=== PATIENT | male | born 1955 | race Caucasian/White ===

== ENCOUNTER 2020-03-05 12:23 | Outpatient (CLI) | payer MEDICARE | END 2020-03-05 12:24 | disposition home or self-care (01) | LOC: ULT 12:23 | PROVIDERS: ATTEND Internal Medicine Critical Care Medicine | DX: G47.33 Obstructive sleep apnea (adult) (pediatric) (principal); I08.1 Rheumatic disorders of both mitral and tricuspid valves | CPT/HCPCS: 93306 ==

== ENCOUNTER 2020-03-08 07:04 | Outpatient (CLI) | payer MEDICARE ==
[2020-03-08 17:22] LABS: Hemoglobin 14.7 g/dL (14.0-18.0); Mean Corpuscular HGB CONC 32.5 G/DL (32.0-36.0); Mean Corpuscular Hemoglobin 29.2 PG (27.0-33.0); Mean Corpuscular Volume 89.7 fl (80.0-100.0); Mean Platelet Volume 9.5 fl (7.4-10.4); Platelet Count 370 10x3/uL (130-400); RBC Distribution Width 15.1 % (11.5-14.5); Red Blood Cell (RBC) Count 5.04 10x6/uL (4.40-5.80); White Blood Cell (WBC) Count 11.5 10x3/uL (4.5-11.0)
[2020-03-08 17:23] LABS: PTT 28.4 sec (22.0-33.0); Prothrombin Time 10.3 sec (9.5-12.1)
[2020-03-08 17:30] LABS: Anion Gap 20 mmol/L (10-20); BUN (Urea Nitrogen) 15 mg/dL (8.4-25.7); Calc. Creatinine Clearance 0 mL/min (70-130); Calcium 8.2 mg/dL (7.8-10.44); Carbon Dioxide 25 mmol/L (23-31); Chloride 96 mmol/L (98-107); Glucose 81 mg/dL (80-115); Potassium 5.5 mmol/L (3.5-5.1); Sodium 135 mmol/L (136-145)
[2020-03-09 09:25] LABS: SARS-CoV-2 MS2 Positive; SARS-CoV-2 N Gene Negative; SARS-CoV-2 S Gene Negative; SARS-CoV-2 by NAA Not Detected (NotDetected); SARS-CoV-2 orf1ab Negative
--- NOTE | 2020-03-12 07:02 | EKG ---
Test Reason : PREOP Blood Pressure : / mmHG Vent. Rate : 075 BPM Atrial Rate : 075 BPM P-R Int : 200 ms QRS Dur : 126 ms QT Int : 406 ms P-R-T Axes : 079 257 080 degrees QTc Int : 453 ms Normal sinus rhythm Right superior axis deviation Non-specific intra-ventricular conduction block Cannot rule out Septal infarct , age undetermined Abnormal ECG No previous ECGs available Confirmed by SHRUTHI DOBSON, CINDY ([id number]) on 03/12/2020 7:01:29 AM Referred By: SUSIE Confirmed By:CINDY HAWKINS MD
== END 2020-03-08 07:05 | disposition home or self-care (01) ==
LOC: LABBT 07:04
PROVIDERS: ATTEND Urology
DX: Z01.818 Encounter for other preprocedural examination (principal); Z20.828 Contact with and (suspected) exposure to other viral communicable diseases; N40.0 Benign prostatic hyperplasia without lower urinary tract symptoms
CPT/HCPCS: 80048; 85027; 85610; 85730; U0003; 87635; 93005; 93010

== ENCOUNTER 2020-03-12 11:17 | Day surgery (SDC) | payer MEDICARE ==
[2020-02-26 09:24] VITALS: BMI 27.8
[2020-03-12] MEDS ORDERED: Levofloxacin 500 mg/D5W 100 ml Premix Bag ONE (12:25)
[2020-03-12] MEDS ORDERED: Dexamethasone 20 MG/5 ML VIAL ONE (12:46)
[2020-03-12] MEDS ORDERED: Lidocaine 1% PF 5 ML VIAL ONE (12:46)
[2020-03-12] MEDS ORDERED: PROPOFOL 200 MG/20 ML VIAL ONE (12:46)
[2020-03-12] MEDS ORDERED: Ondansetron PF 4 MG/2 ML Vial ONE (12:46)
[2020-03-12] MEDS ORDERED: Fentanyl 100 MCG/2 ML VIAL ONE (12:53)
[2020-03-12] MEDS ORDERED: Oxybutynin 5 MG TAB ONE (13:52)
[2020-03-12] MEDS ORDERED: Phenazopyridine HCl 100 MG TAB ONE (13:52)
[2020-03-12] MEDS ORDERED: Ketorolac Tromethamine 30 MG/ML VIAL ONE (13:52)
--- NOTE | 2020-03-12 14:29 | OP ---
DATE OF PROCEDURE: 03/12/2020 PREOPERATIVE DIAGNOSIS: Lower urinary tract symptoms due to enlarged prostate. POSTOPERATIVE DIAGNOSIS: Lower urinary tract symptoms due to enlarged prostate. PROCEDURE PERFORMED: UroLift x6 implants. ANESTHESIA: General. COMPLICATIONS: None. ESTIMATED BLOOD LOSS: Minimal. SPECIMEN: None. DESCRIPTION OF PROCEDURE: After informed consent, the patient was taken to the operating room, transferred to the table under his own power. Anesthesia was established. A time-out was performed, showing the correct patient, site, and procedure. Preoperative antibiotics were administered. He was prepped and draped in the lithotomy position. The 20-English cystoscope was advanced through the urethra noting a normal course and caliber of the urethra into the prostate noting a short segment prostate with obstructing bladder neck. The bladder was then entered noting moderate trabeculation with no mucosal abnormalities. I began by placing an implant anteriorly about mid prostate given the short length of the prostate on the left side. I then placed a similar implant on the right side. However, severed two bone strikes despite multiple techniques to attempt to avoid a bone strike. I then repositioned slightly less anterior and was able to place the implant. I then placed two more implants in the distal prostate more posterior than the previous ones. At the end of the case, he had excellent channel with no visual obstruction. His bladder was drained and then refilled with about 200 mL to enable a void trial in recovery. He was then awoken from anesthesia, transferred back to his hospital bed and taken to PACU in stable condition, where he was discharged home upon recovery. Job ID: [id number]
== END 2020-03-12 15:27 | disposition home or self-care (01) ==
LOC: SDC 11:17
PROVIDERS: ATTEND Urology
PROC: 0T7D8DZ Dilation of Urethra with Intraluminal Device, Via Natural or Artificial Opening Endoscopic (ICD-10-PCS; principal; 2020-03-12)
DX: N40.1 Benign prostatic hyperplasia with lower urinary tract symptoms (principal); R33.8 Other retention of urine; R39.14 Feeling of incomplete bladder emptying; F17.210 Nicotine dependence, cigarettes, uncomplicated; F41.9 Anxiety disorder, unspecified; J44.9 Chronic obstructive pulmonary disease, unspecified; M19.90 Unspecified osteoarthritis, unspecified site; Z79.899 Other long term (current) drug therapy; Z88.2 Allergy status to sulfonamides; Z88.8 Allergy status to other drugs, medicaments and biological substances
CPT/HCPCS: C1889; C9740; J1100; J1885; J1956; J2405; J2704; J3010; J7620

== ENCOUNTER 2020-04-21 19:00 | Outpatient (CLI) | payer MEDICARE | END 2020-04-21 19:01 | disposition home or self-care (01) | LOC: SLEEPLAB 19:00 | PROVIDERS: ATTEND Internal Medicine Critical Care Medicine | DX: F51.9 Sleep disorder not due to a substance or known physiological condition, unspecified (principal); G47.33 Obstructive sleep apnea (adult) (pediatric); R53.83 Other fatigue; R09.89 Other specified symptoms and signs involving the circulatory and respiratory systems; R06.83 Snoring; G47.10 Hypersomnia, unspecified; G47.31 Primary central sleep apnea; R09.02 Hypoxemia; E66.9 Obesity, unspecified; Z68.29 Body mass index [BMI] 29.0-29.9, adult | CPT/HCPCS: 95811 ==

== ENCOUNTER 2020-07-01 10:16 | Outpatient (CLI) | payer MEDICARE | END 2020-07-01 10:17 | disposition home or self-care (01) | LOC: BICRAD 10:16 | PROVIDERS: ATTEND Internal Medicine Critical Care Medicine | DX: R06.00 Dyspnea, unspecified (principal) | CPT/HCPCS: 71046 ==

== ENCOUNTER 2020-07-19 01:13 | Inpatient (IN) | payer MEDICARE ==
[2020-07-19] MEDS ORDERED: Furosemide 40 MG TAB ONE (01:43)
[2020-07-19] MEDS ORDERED: methylPREDNISolone Sod Succ/PF 125 MG/2 ML VIAL ONE (01:43)
[2020-07-19] MEDS ORDERED: Acetaminophen 500 MG TAB ONE (01:43)
[2020-07-19] MEDS ORDERED: Vancomycin 1 GM/200 ML BAG ONE (01:43)
[2020-07-19] MEDS ORDERED: Cefepime 2 GM VIAL ONE (01:43)
[2020-07-19] MEDS ORDERED: Furosemide 40 MG/4 ML VIAL ONE (01:44)
[2020-07-19] MEDS ORDERED: Albuterol Sulfate 2.5 mg/3 ml Neb ONE (01:48)
[2020-07-19 02:08] LABS: Band 15 % (5-11); Hemoglobin 15.1 g/dL (14.0-18.0); Lymphocytes 5 % (21-51); MDiff Complete? YES; Mean Corpuscular HGB CONC 31.5 g/dL (32.0-36.0); Mean Corpuscular Hemoglobin 29.1 pg (27.0-31.0); Mean Corpuscular Volume 92.6 fL (78.0-98.0); Mean Platelet Volume 7.1 fL (7.4-10.4); Monocytes 11 % (0-10); Neutrophil 69 % (42-75); Platelet Count 481 thou/uL (130-400); Red Blood Cell (RBC) Count 5.18 mill/uL (4.70-6.10); White Blood Cell (WBC) Count 25.4 thou/uL (4.8-10.8)
[2020-07-19 02:56] LABS: Bacteria/HPF None Seen HPF (None Seen); Bilirubin Negative (Negative); Blood, Urine Negative (Negative); Clarity Clear (Clear); Glucose, Urine (Dipstick) Normal (Negative); Ketone, Urine Negative (Negative); Leukocyte Negative Leu/uL (Negative); Nitrite Negative (Negative); Protein, Urine (Dipstick) 30 mg/dL (Neg-Trace); RBC/HPF 0-3 HPF (0-3); Specific Gravity, Urine 1.016 (1.002-1.036); Squamous Epithelial 0-3 HPF (0-3); Urobilinogen Normal mg/dL (Less than 2); WBC/HPF 0-3 HPF (0-3)
[2020-07-19 03:12] LABS: SARS-CoV-2 NAA Rapid Test Not Detected (NotDetected)
[2020-07-19 03:21] LABS: Albumin 3.3 g/dL (3.4-4.8)
[2020-07-19 03:23] LABS: Calcium 7.9 mg/dL (7.8-10.44); Chloride 93 mmol/L (98-107); Potassium 4.1 mmol/L (3.5-5.1); Sodium 136 mmol/L (136-145)
[2020-07-19 03:24] LABS: Globulin 3.5 g/dL (2.4-3.5); Glucose 145 mg/dL (80-115); Protein, Total 6.8 g/dL (5.8-8.1)
[2020-07-19 03:26] LABS: Anion Gap 14 mmol/L (10-20); Bilirubin, Total 0.4 mg/dL (0.2-1.2); Carbon Dioxide 33 mmol/L (23-31)
[2020-07-19 03:27] LABS: Alkaline Phosphatase 146 U/L (40-110); Calc. Creatinine Clearance 0 mL/min (70-130)
[2020-07-19 03:28] LABS: BUN (Urea Nitrogen) 33 mg/dL (8.4-25.7)
[2020-07-19 03:29] LABS: AST (SGOT) 16 U/L (5-34)
[2020-07-19 03:30] LABS: ALT (SGPT) 22 U/L (8-55)
[2020-07-19] MEDS ORDERED: Ondansetron PF 4 MG/2 ML Vial IVP PRN (05:05)
[2020-07-19] MEDS ORDERED: Ondansetron ODT 4 MG TAB PO PRN (05:05)
[2020-07-19] MEDS ORDERED: Azithromycin 500 MG in Sodium Chloride 0.9% 250 ML 250 ML IVPB SCH (06:00)
[2020-07-19] MEDS ORDERED: Cefepime 2 GM in Sodium Chloride 0.9% 100 ML IVPB SCH (06:00)
[2020-07-19 06:03] LABS: Troponin I 0.064 ng/mL (< 0.028)
[2020-07-19] MEDS ORDERED: FLU VACC QS2020-21(65YR UP)/PF 240 MCG/0.7 ML SYRINGE IM ONE (07:45)
[2020-07-19] MEDS: Enoxaparin Sodium 40 MG/0.4 ML SYRINGE SC SCH (08:24)
[2020-07-19] MEDS: Furosemide 40 MG/4 ML VIAL SLOW IVP SCH (08:24)
[2020-07-19] MEDS ORDERED: methylPREDNISolone Sod Succ 40 MG VIAL IVP SCH (09:00)
[2020-07-19 09:21] LABS: Troponin I 0.045 ng/mL (< 0.028)
[2020-07-19] MEDS ORDERED: HYDROcodone/Acetaminophen 5/325 mg Tablet PO PRN (13:30)
[2020-07-19] MEDS: Mometasone 200 MCG/Formoterol 5 MCG 120 PUFF INHALER INH SCH (18:45)
[2020-07-19] MEDS ORDERED: predniSONE 50 MG TAB PO SCH (20:00)
[2020-07-19] MEDS: HYDROcodone/Acetaminophen 5/325 mg Tablet PO PRN (20:20)
[2020-07-19] MEDS: Cefepime 2 GM in Sodium Chloride 0.9% 100 ML IVPB SCH (21:33)
[2020-07-19] MEDS: methylPREDNISolone Sod Succ 40 MG VIAL IVP SCH (21:48)
[2020-07-20] MEDS: HYDROcodone/Acetaminophen 5/325 mg Tablet PO PRN ×4 (01:21→21:13)
[2020-07-20] MEDS ORDERED: methylPREDNISolone Sod Succ 40 MG VIAL IVP SCH (02:00)
[2020-07-20 04:00] LABS: #Lymphocytes 0.4 thou/uL (1.20-3.40); #Neutrophils 16.6 thou/uL (1.40-6.50); %Eosinophils 0.1 % (0.0-10.0); %Lymphocytes 2.3 % (21.0-51.0); %Monocytes 5.4 % (0.0-10.0); %Neutrophils 92.3 % (42.0-75.0); Hemoglobin 13.2 g/dL (14.0-18.0); Mean Corpuscular HGB CONC 31.4 g/dL (32.0-36.0); Mean Corpuscular Hemoglobin 29.2 pg (27.0-31.0); Mean Corpuscular Volume 92.9 fL (78.0-98.0); Mean Platelet Volume 6.8 fL (7.4-10.4); Platelet Count 415 thou/uL (130-400); RBC Distribution Width 14.8 % (11.5-14.5); Red Blood Cell (RBC) Count 4.51 mill/uL (4.70-6.10)
[2020-07-20 04:16] LABS: Anion Gap 11 mmol/L (10-20); BUN (Urea Nitrogen) 36 mg/dL (8.4-25.7); Calc. Creatinine Clearance 87 mL/min (70-130); Carbon Dioxide 37 mmol/L (23-31); Chloride 95 mmol/L (98-107); Glucose 145 mg/dL (80-115); Potassium 4.3 mmol/L (3.5-5.1); Sodium 139 mmol/L (136-145)
[2020-07-20] MEDS ORDERED: diphenhydrAMINE 50 MG CAP PO SCH (08:00)
[2020-07-20] MEDS: Furosemide 40 MG/4 ML VIAL SLOW IVP SCH (08:06)
[2020-07-20] MEDS: methylPREDNISolone Sod Succ 40 MG VIAL IVP SCH ×2 (08:06→21:14)
[2020-07-20] MEDS: Enoxaparin Sodium 40 MG/0.4 ML SYRINGE SC SCH (08:06)
[2020-07-20] MEDS: Cefepime 2 GM in Sodium Chloride 0.9% 100 ML IVPB SCH ×2 (08:06→21:12)
[2020-07-20] MEDS: Mometasone 200 MCG/Formoterol 5 MCG 120 PUFF INHALER INH SCH ×2 (08:14→18:20)
[2020-07-20] MEDS ORDERED: Iopamidol-370 76% 500 ML 1 ML ONE (10:16)
[2020-07-21] MEDS: HYDROcodone/Acetaminophen 5/325 mg Tablet PO PRN ×4 (04:25→22:21)
[2020-07-21 04:29] LABS: ALT (SGPT) 16 U/L (8-55); AST (SGOT) 19 U/L (5-34); Albumin 2.8 g/dL (3.4-4.8); Alkaline Phosphatase 103 U/L (40-110); Anion Gap 14 mmol/L (10-20); BUN (Urea Nitrogen) 31 mg/dL (8.4-25.7); Bilirubin, Total 0.3 mg/dL (0.2-1.2); Calc. Creatinine Clearance 98 mL/min (70-130); Carbon Dioxide 32 mmol/L (23-31); Chloride 95 mmol/L (98-107); Glucose 141 mg/dL (80-115); Potassium 4.3 mmol/L (3.5-5.1); Protein, Total 5.8 g/dL (5.8-8.1); Sodium 137 mmol/L (136-145)
[2020-07-21 05:28] LABS: Band 15 % (5-11); Hemoglobin 13.7 g/dL (14.0-18.0); Lymphocytes 3 % (21-51); MDiff Complete? YES; Mean Corpuscular HGB CONC 31.4 g/dL (32.0-36.0); Mean Corpuscular Hemoglobin 28.9 pg (27.0-31.0); Mean Platelet Volume 6.9 fL (7.4-10.4); Monocytes 5 % (0-10); Neutrophil 77 % (42-75); Platelet Count 459 thou/uL (130-400); RBC Distribution Width 14.8 % (11.5-14.5); Red Blood Cell (RBC) Count 4.74 mill/uL (4.70-6.10)
[2020-07-21] MEDS: Mometasone 200 MCG/Formoterol 5 MCG 120 PUFF INHALER INH SCH ×2 (08:33→18:26)
[2020-07-21] MEDS: methylPREDNISolone Sod Succ 40 MG VIAL IVP SCH ×2 (09:06→21:03)
[2020-07-21] MEDS: Cefepime 2 GM in Sodium Chloride 0.9% 100 ML IVPB SCH ×2 (09:06→21:03)
[2020-07-21] MEDS: Enoxaparin Sodium 40 MG/0.4 ML SYRINGE SC SCH (09:06)
[2020-07-21] MEDS: Furosemide 40 MG/4 ML VIAL SLOW IVP SCH (09:06)
[2020-07-21] MEDS: Lidocaine 5% Patch TD SCH (13:18)
[2020-07-21] MEDS: Transdermal Patch Removal TOP SCH (23:42)
[2020-07-22 04:22] LABS: Anion Gap 14 mmol/L (10-20); BUN (Urea Nitrogen) 23 mg/dL (8.4-25.7); Calc. Creatinine Clearance 102 mL/min (70-130); Calcium 8.2 mg/dL (7.8-10.44); Carbon Dioxide 32 mmol/L (23-31); Chloride 94 mmol/L (98-107); Glucose 135 mg/dL (80-115); Potassium 4.5 mmol/L (3.5-5.1); Sodium 135 mmol/L (136-145)
[2020-07-22] MEDS: HYDROcodone/Acetaminophen 5/325 mg Tablet PO PRN ×4 (04:23→21:21)
[2020-07-22 05:00] LABS: Band 10 % (5-11); Hemoglobin 14.6 g/dL (14.0-18.0); Lymphocytes 2 % (21-51); MDiff Complete? YES; Mean Corpuscular HGB CONC 30.7 g/dL (32.0-36.0); Mean Corpuscular Hemoglobin 28.2 pg (27.0-31.0); Mean Corpuscular Volume 91.8 fL (78.0-98.0); Mean Platelet Volume 7.4 fL (7.4-10.4); Metamyelocyte 2 % (0-0); Monocytes 1 % (0-10); Neutrophil 85 % (42-75); Platelet Count 424 thou/uL (130-400); RBC Distribution Width 14.9 % (11.5-14.5); Red Blood Cell (RBC) Count 5.17 mill/uL (4.70-6.10); Stomatocytes SLIGHT = 2-5 cells (100X) (0-1/hpf); White Blood Cell (WBC) Count 20.3 thou/uL (4.8-10.8)
[2020-07-22] MEDS: Mometasone 200 MCG/Formoterol 5 MCG 120 PUFF INHALER INH SCH ×2 (06:58→18:29)
[2020-07-22] MEDS: Furosemide 40 MG TAB PO SCH (07:41)
[2020-07-22] MEDS: Cefepime 2 GM in Sodium Chloride 0.9% 100 ML IVPB SCH ×2 (07:42→21:04)
[2020-07-22] MEDS: Enoxaparin Sodium 40 MG/0.4 ML SYRINGE SC SCH (07:42)
[2020-07-22] MEDS: methylPREDNISolone Sod Succ 40 MG VIAL IVP SCH ×2 (07:42→21:05)
[2020-07-22] MEDS ORDERED: HYDROcodone/Acetaminophen 5/325 mg Tablet PO PRN (10:08)
[2020-07-22] MEDS ORDERED: Famotidine 20 MG TAB PO PRN (10:08)
[2020-07-22] MEDS: Lidocaine 5% Patch TD SCH (11:16)
[2020-07-22] MEDS: guaiFENesin/DM ER PO SCH (21:06)
[2020-07-22] MEDS: Transdermal Patch Removal TOP SCH (23:08)
[2020-07-23] MEDS: HYDROcodone/Acetaminophen 5/325 mg Tablet PO PRN ×4 (03:31→22:32)
[2020-07-23] MEDS: Mometasone 200 MCG/Formoterol 5 MCG 120 PUFF INHALER INH SCH ×2 (07:42→18:31)
[2020-07-23] MEDS: Cefepime 2 GM in Sodium Chloride 0.9% 100 ML IVPB SCH ×2 (08:14→20:58)
[2020-07-23] MEDS: Enoxaparin Sodium 40 MG/0.4 ML SYRINGE SC SCH (08:15)
[2020-07-23] MEDS: methylPREDNISolone Sod Succ 40 MG VIAL IVP SCH ×2 (08:15→21:01)
[2020-07-23] MEDS: Furosemide 40 MG TAB PO SCH (08:15)
[2020-07-23] MEDS: Calcium Carbonate 600 MG + Vit D TAB PO SCH (08:15)
[2020-07-23] MEDS: guaiFENesin/DM ER PO SCH ×2 (08:15→21:02)
[2020-07-23] MEDS: Lisinopril 5 MG TAB PO SCH (09:11)
[2020-07-23] MEDS: Lidocaine 5% Patch TD SCH (10:12)
[2020-07-23] MEDS: Ibuprofen 600 MG TAB PO PRN (14:18)
[2020-07-23 14:45] VITALS: BMI 25.4
[2020-07-23] MEDS: Cyclobenzaprine 10 MG TAB PO PRN (21:18)
[2020-07-23] MEDS: Transdermal Patch Removal TOP SCH (23:31)
[2020-07-24] MEDS: HYDROcodone/Acetaminophen 5/325 mg Tablet PO PRN (04:59)
[2020-07-24] MEDS: Cefepime 2 GM in Sodium Chloride 0.9% 100 ML IVPB SCH (08:06)
[2020-07-24] MEDS: Furosemide 40 MG TAB PO SCH (08:06)
[2020-07-24] MEDS: Ibuprofen 600 MG TAB PO PRN ×3 (08:07→23:08)
[2020-07-24] MEDS: Calcium Carbonate 600 MG + Vit D TAB PO SCH (08:07)
[2020-07-24] MEDS: Lisinopril 5 MG TAB PO SCH (08:07)
[2020-07-24] MEDS: guaiFENesin/DM ER PO SCH ×2 (08:08→19:24)
[2020-07-24] MEDS: methylPREDNISolone Sod Succ 40 MG VIAL IVP SCH (08:08)
[2020-07-24] MEDS: Enoxaparin Sodium 40 MG/0.4 ML SYRINGE SC SCH (08:08)
[2020-07-24] MEDS: Mometasone 200 MCG/Formoterol 5 MCG 120 PUFF INHALER INH SCH ×2 (08:15→18:21)
[2020-07-24] MEDS: Lidocaine 5% Patch TD SCH (11:40)
[2020-07-24] MEDS: Acetaminophen 325 MG TAB PO PRN ×2 (11:40→21:13)
[2020-07-24] MEDS ORDERED: predniSONE 20 MG TAB PO SCH (12:30)
[2020-07-24] MEDS: Cyclobenzaprine 10 MG TAB PO PRN ×2 (14:06→21:18)
[2020-07-24] MEDS: Cefdinir 300 MG CAP PO SCH (19:24)
[2020-07-24] MEDS: Transdermal Patch Removal TOP SCH (23:09)
[2020-07-25] MEDS: Acetaminophen 325 MG TAB PO PRN ×3 (02:46→18:14)
[2020-07-25] MEDS: Mometasone 200 MCG/Formoterol 5 MCG 120 PUFF INHALER INH SCH ×2 (07:57→18:25)
[2020-07-25] MEDS ORDERED: predniSONE 20 MG TAB PO SCH (08:00)
[2020-07-25 08:04] LABS: ALT (SGPT) 22 U/L (8-55); AST (SGOT) 13 U/L (5-34); Albumin 2.9 g/dL (3.4-4.8); Alkaline Phosphatase 97 U/L (40-110); Anion Gap 14 mmol/L (10-20); BUN (Urea Nitrogen) 23 mg/dL (8.4-25.7); Bilirubin, Total 0.4 mg/dL (0.2-1.2); Calc. Creatinine Clearance 102 mL/min (70-130); Carbon Dioxide 32 mmol/L (23-31); Chloride 96 mmol/L (98-107); Globulin 2.9 g/dL (2.4-3.5); Glucose 94 mg/dL (80-115); Potassium 4.2 mmol/L (3.5-5.1); Protein, Total 5.8 g/dL (5.8-8.1); Sodium 138 mmol/L (136-145)
[2020-07-25 08:16] LABS: Anisocytosis SLIGHT = 6-15 cells (100X) (0-5/hpf); Eosinophils 4 % (0-10); Hemoglobin 15.1 g/dL (14.0-18.0); Lymphocytes 11 % (21-51); MDiff Complete? YES; Mean Corpuscular HGB CONC 30.4 g/dL (32.0-36.0); Mean Corpuscular Hemoglobin 27.9 pg (27.0-31.0); Mean Corpuscular Volume 91.8 fL (78.0-98.0); Mean Platelet Volume 6.6 fL (7.4-10.4); Monocytes 13 % (0-10); Neutrophil 72 % (42-75); Platelet Count 532 thou/uL (130-400); Platelet Morphology Comment Appears Increased; RBC Distribution Width 15.3 % (11.5-14.5); Red Blood Cell (RBC) Count 5.42 mill/uL (4.70-6.10); White Blood Cell (WBC) Count 28.6 thou/uL (4.8-10.8)
[2020-07-25] MEDS: Calcium Carbonate 600 MG + Vit D TAB PO SCH (08:20)
[2020-07-25] MEDS: Cyclobenzaprine 10 MG TAB PO PRN ×2 (08:20→21:07)
[2020-07-25] MEDS: Furosemide 40 MG TAB PO SCH (08:20)
[2020-07-25] MEDS: Lisinopril 5 MG TAB PO SCH (08:21)
[2020-07-25] MEDS: Cefdinir 300 MG CAP PO SCH ×2 (08:21→20:22)
[2020-07-25] MEDS: Enoxaparin Sodium 40 MG/0.4 ML SYRINGE SC SCH (08:21)
[2020-07-25] MEDS: guaiFENesin/DM ER PO SCH ×2 (08:22→20:22)
[2020-07-25] MEDS: Ibuprofen 600 MG TAB PO PRN ×3 (09:05→21:20)
[2020-07-25] MEDS: Lidocaine 5% Patch TD SCH (12:13)
[2020-07-25] MEDS: Bisacodyl 5 MG TAB PO PRN (21:06)
[2020-07-26] MEDS: Acetaminophen 325 MG TAB PO PRN ×3 (00:10→13:17)
[2020-07-26] MEDS: Transdermal Patch Removal TOP SCH ×2 (00:13→23:34)
[2020-07-26] MEDS: Ibuprofen 600 MG TAB PO PRN ×3 (03:14→17:20)
[2020-07-26] MEDS: Cyclobenzaprine 10 MG TAB PO PRN ×2 (05:07→23:07)
[2020-07-26] MEDS: Mometasone 200 MCG/Formoterol 5 MCG 120 PUFF INHALER INH SCH ×2 (07:54→18:27)
[2020-07-26] MEDS ORDERED: predniSONE 20 MG TAB PO SCH (08:00)
[2020-07-26 08:22] LABS: Hemoglobin 14.7 g/dL (14.0-18.0); Mean Corpuscular HGB CONC 30.5 g/dL (32.0-36.0); Mean Corpuscular Hemoglobin 28.1 pg (27.0-31.0); Mean Corpuscular Volume 92.1 fL (78.0-98.0); Mean Platelet Volume 6.6 fL (7.4-10.4); Platelet Count 556 thou/uL (130-400); RBC Distribution Width 15.2 % (11.5-14.5); Red Blood Cell (RBC) Count 5.26 mill/uL (4.70-6.10); White Blood Cell (WBC) Count 25.4 thou/uL (4.8-10.8)
[2020-07-26 08:38] LABS: Anion Gap 16 mmol/L (10-20); BUN (Urea Nitrogen) 24 mg/dL (8.4-25.7); Calc. Creatinine Clearance 97 mL/min (70-130); Carbon Dioxide 30 mmol/L (23-31); Chloride 96 mmol/L (98-107); Glucose 100 mg/dL (80-115); Potassium 4.5 mmol/L (3.5-5.1); Sodium 137 mmol/L (136-145)
[2020-07-26] MEDS: Cefdinir 300 MG CAP PO SCH ×2 (09:02→20:39)
[2020-07-26] MEDS: Calcium Carbonate 600 MG + Vit D TAB PO SCH (09:02)
[2020-07-26] MEDS: Lisinopril 5 MG TAB PO SCH (09:03)
[2020-07-26] MEDS: guaiFENesin/DM ER PO SCH ×2 (09:04→20:41)
[2020-07-26] MEDS: Enoxaparin Sodium 40 MG/0.4 ML SYRINGE SC SCH (09:04)
[2020-07-26] MEDS: Lidocaine 5% Patch TD SCH (11:20)
[2020-07-26 11:33] LABS: Band 2 % (5-11); Lymphocytes 9 % (21-51); MDiff Complete? YES; Metamyelocyte 2 % (0-0); Monocytes 6 % (0-10); Neutrophil 78 % (42-75); Platelet Morphology Comment Appears Increased; RBC Morphology Normal; Reactive Lymphocytes 3 % (0-10)
[2020-07-26] MEDS: Bisacodyl 5 MG TAB PO PRN (20:47)
[2020-07-27] MEDS: Ibuprofen 600 MG TAB PO PRN ×2 (03:30→15:43)
[2020-07-27] MEDS: Mometasone 200 MCG/Formoterol 5 MCG 120 PUFF INHALER INH SCH (06:56)
[2020-07-27 06:58] LABS: Band 4 % (5-11); Eosinophils 1 % (0-10); Hemoglobin 14.6 g/dL (14.0-18.0); Lymphocytes 7 % (21-51); MDiff Complete? YES; Mean Corpuscular HGB CONC 30.6 g/dL (32.0-36.0); Mean Corpuscular Hemoglobin 28.1 pg (27.0-31.0); Mean Corpuscular Volume 91.9 fL (78.0-98.0); Mean Platelet Volume 6.6 fL (7.4-10.4); Metamyelocyte 2 % (0-0); Monocytes 7 % (0-10); Myelocyte 1 % (0-0); Neutrophil 78 % (42-75); Platelet Count 546 thou/uL (130-400); Platelet Morphology Comment Appears Increased; RBC Distribution Width 15.2 % (11.5-14.5); White Blood Cell (WBC) Count 26.3 thou/uL (4.8-10.8)
[2020-07-27 07:06] LABS: Anion Gap 14 mmol/L (10-20); BUN (Urea Nitrogen) 22 mg/dL (8.4-25.7); Calc. Creatinine Clearance 100 mL/min (70-130); Calcium 8.1 mg/dL (7.8-10.44); Carbon Dioxide 32 mmol/L (23-31); Chloride 97 mmol/L (98-107); Glucose 140 mg/dL (80-115); Potassium 4.6 mmol/L (3.5-5.1); Sodium 138 mmol/L (136-145)
[2020-07-27] MEDS: Acetaminophen 325 MG TAB PO PRN (07:12)
[2020-07-27] MEDS ORDERED: predniSONE 20 MG TAB PO SCH (08:00)
[2020-07-27 08:20] VITALS: BP 124/63; TEMP 98
[2020-07-27] MEDS: Lisinopril 5 MG TAB PO SCH (08:50)
[2020-07-27] MEDS: Cefdinir 300 MG CAP PO SCH (08:50)
[2020-07-27] MEDS: guaiFENesin/DM ER PO SCH (08:50)
[2020-07-27] MEDS: Calcium Carbonate 600 MG + Vit D TAB PO SCH (08:50)
[2020-07-27] MEDS: Enoxaparin Sodium 40 MG/0.4 ML SYRINGE SC SCH (08:50)
[2020-07-27] MEDS ORDERED: Magnesium Citrate 300 ML BOT PO SCH (09:30)
[2020-07-27] MEDS: Lidocaine 5% Patch TD SCH (11:09)
[2020-07-27] MEDS: Cyclobenzaprine 10 MG TAB PO PRN (11:09)
== END 2020-07-27 17:00 | DRG 871 ==
LOC: ERS 01:13 → IMCU/EMU 04:53 → ONC 07-22 13:13
PROVIDERS: ADMIT Student in an Organized Health Care Education/Training Program; ATTEND Internal Medicine
DX: A41.9 Sepsis, unspecified organism (principal); I50.33 Acute on chronic diastolic (congestive) heart failure; Z20.822 Contact with and (suspected) exposure to COVID-19; I21.A1 Myocardial infarction type 2; J96.01 Acute respiratory failure with hypoxia; J96.02 Acute respiratory failure with hypercapnia; J69.0 Pneumonitis due to inhalation of food and vomit; S22.069A Unspecified fracture of T7-T8 vertebra, initial encounter for closed fracture; J44.0 Chronic obstructive pulmonary disease with (acute) lower respiratory infection; J44.1 Chronic obstructive pulmonary disease with (acute) exacerbation; K86.1 Other chronic pancreatitis; I13.0 Hypertensive heart and chronic kidney disease with heart failure and stage 1 through stage 4 chronic kidney disease, or unspecified chronic kidney disease; E87.1 Hypo-osmolality and hyponatremia; R65.20 Severe sepsis without septic shock; G47.33 Obstructive sleep apnea (adult) (pediatric); F17.210 Nicotine dependence, cigarettes, uncomplicated; F32.9 Major depressive disorder, single episode, unspecified; K59.00 Constipation, unspecified; N40.0 Benign prostatic hyperplasia without lower urinary tract symptoms; N18.9 Chronic kidney disease, unspecified; I08.1 Rheumatic disorders of both mitral and tricuspid valves; E88.09 Other disorders of plasma-protein metabolism, not elsewhere classified; I27.20 Pulmonary hypertension, unspecified; N20.0 Calculus of kidney; Z87.442 Personal history of urinary calculi; Z88.2 Allergy status to sulfonamides; Z88.8 Allergy status to other drugs, medicaments and biological substances; Z79.51 Long term (current) use of inhaled steroids; Z79.899 Other long term (current) drug therapy
CPT/HCPCS: 0240U; 36415; 71045; 71260; 72070; 74230; 80048; 80053; 81003; 81015; 82553; 83605; 83880; 84484; 85025; 87040; 87086; 93005; 93306; 94640; 94660; 96365; 96375; J0456; J0692; J1650; J1940; J2920; J2930; J3370; J3490; J7050; J7512; J7611; J7620; Q9967

== ENCOUNTER 2020-08-03 09:03 | Inpatient (IN) | payer MEDICARE, OTHER ==
[2020-08-03 10:33] LABS: Hemoglobin 14.8 g/dL (14.0-18.0); Mean Corpuscular HGB CONC 30.1 g/dL (32.0-36.0); Mean Corpuscular Hemoglobin 27.3 pg (27.0-31.0); Mean Corpuscular Volume 90.9 fL (78.0-98.0); Mean Platelet Volume 6.7 fL (7.4-10.4); Platelet Count 504 thou/uL (130-400); RBC Distribution Width 15.6 % (11.5-14.5); Red Blood Cell (RBC) Count 5.42 mill/uL (4.70-6.10); White Blood Cell (WBC) Count 19.9 thou/uL (4.8-10.8)
[2020-08-03 10:46] LABS: INR-International Normal Ratio 0.9; PTT 28.5 sec (22.9-36.1); Prothrombin Time 12.1 sec (12.0-14.7)
[2020-08-03 10:51] LABS: ALT (SGPT) 20 U/L (8-55); AST (SGOT) 12 U/L (5-34); Albumin 3.2 g/dL (3.4-4.8); Alkaline Phosphatase 111 U/L (40-110); Anion Gap 17 mmol/L (10-20); BUN (Urea Nitrogen) 24 mg/dL (8.4-25.7); Bilirubin, Total 0.4 mg/dL (0.2-1.2); Calc. Creatinine Clearance 0 mL/min (70-130); Calcium 8.2 mg/dL (7.8-10.44); Carbon Dioxide 27 mmol/L (23-31); Chloride 96 mmol/L (98-107); Globulin 3.4 g/dL (2.4-3.5); Glucose 135 mg/dL (80-115); Potassium 4.5 mmol/L (3.5-5.1); Protein, Total 6.6 g/dL (5.8-8.1); Sodium 135 mmol/L (136-145)
[2020-08-03 10:55] LABS: Magnesium 2.2 mg/dL (1.6-2.6); Phosphorus 3.3 mg/dL (2.3-4.7)
[2020-08-03] MEDS ORDERED: Morphine 4 MG/ML VIAL ONE ×2 (11:14→11:26)
[2020-08-03 11:22] LABS: Band 2 % (5-11); Eosinophils 1 % (0-10); Lymphocytes 7 % (21-51); MDiff Complete? YES; Neutrophil 89 % (42-75); Platelet Morphology Comment Appears Increased; Polychromasia SLIGHT = 2-3 cells (100X) (0-2/hpf)
[2020-08-03] MEDS ORDERED: Ondansetron PF 4 MG/2 ML Vial ONE (11:26)
[2020-08-03] MEDS ORDERED: CEFAZOLIN 2 GM in Premix Bag 1 BAG IVPB SCH (14:45)
[2020-08-03] MEDS ORDERED: Ondansetron ODT 4 MG TAB PO PRN (18:42)
[2020-08-03] MEDS ORDERED: traMADol HCl 50 MG TAB PO PRN (18:42)
[2020-08-03] MEDS ORDERED: Dextrose 50% Abboject 50 ML SYRINGE SLOW IVP PRN (18:42)
[2020-08-03] MEDS ORDERED: Ondansetron PF 4 MG/2 ML Vial IVP PRN (18:42)
[2020-08-03] MEDS ORDERED: Dextrose 5% in Water 1,000 ML IV PRN (18:42)
[2020-08-03] MEDS: Morphine 2 MG/ML VIAL SLOW IVP PRN (19:23)
[2020-08-03 20:08] LABS: SARS-CoV-2 PCR by NAA Not Detected (NotDetected)
[2020-08-03 20:53] VITALS: BMI 26.2
[2020-08-03] MEDS: Gabapentin 300 MG CAP PO SCH (22:01)
[2020-08-03] MEDS: Famotidine 20 MG TAB PO SCH (22:02)
[2020-08-03] MEDS: traMADol HCl 50 MG TAB PO PRN (22:03)
[2020-08-04] MEDS: Acetaminophen 325 MG TAB PO SCH ×5 (00:55→23:04)
[2020-08-04] MEDS: Sodium Chloride 0.9% 1,000 ML IV SCH ×3 (00:56→20:58)
[2020-08-04] MEDS: Morphine 2 MG/ML VIAL SLOW IVP PRN ×3 (02:33→20:55)
[2020-08-04] MEDS: traMADol HCl 50 MG TAB PO PRN ×2 (04:52→20:03)
[2020-08-04 07:24] LABS: #Basophils 0.1 thou/uL (0.0-0.2); #Eosinphils 0.5 thou/uL (0.0-0.7); #Lymphocytes 1.5 thou/uL (1.20-3.40); #Monocytes 1.3 thou/uL (0.11-0.59); #Neutrophils 14.7 thou/uL (1.40-6.50); %Basophils 0.8 % (0.0-1.0); %Eosinophils 2.8 % (0.0-10.0); %Lymphocytes 8.5 % (21.0-51.0); %Monocytes 6.9 % (0.0-10.0); %Neutrophils 81.1 % (42.0-75.0); Hemoglobin 13.8 g/dL (14.0-18.0); Mean Corpuscular Hemoglobin 28.4 pg (27.0-31.0); Mean Corpuscular Volume 91.7 fL (78.0-98.0); Mean Platelet Volume 6.4 fL (7.4-10.4); Platelet Count 469 thou/uL (130-400); RBC Distribution Width 15.5 % (11.5-14.5); Red Blood Cell (RBC) Count 4.86 mill/uL (4.70-6.10); White Blood Cell (WBC) Count 18.1 thou/uL (4.8-10.8)
[2020-08-04 07:41] LABS: Anion Gap 12 mmol/L (10-20); BUN (Urea Nitrogen) 27 mg/dL (8.4-25.7); Calc. Creatinine Clearance 87 mL/min (70-130); Calcium 8.1 mg/dL (7.8-10.44); Carbon Dioxide 30 mmol/L (23-31); Chloride 100 mmol/L (98-107); Glucose 102 mg/dL (80-115); Potassium 4.3 mmol/L (3.5-5.1); Sodium 138 mmol/L (136-145)
[2020-08-04] MEDS: Gabapentin 300 MG CAP PO SCH ×2 (09:08→20:04)
[2020-08-04] MEDS: Famotidine 20 MG TAB PO SCH ×2 (09:08→20:04)
[2020-08-04] MEDS ORDERED: PROPOFOL 200 MG/20 ML VIAL ONE (13:49)
[2020-08-04] MEDS ORDERED: Fentanyl 100 MCG/2 ML VIAL ONE ×4 (14:22→17:53)
[2020-08-04] MEDS ORDERED: PROPOFOL 40 ML ONE (15:23)
[2020-08-04] MEDS ORDERED: Promethazine HCl 25 MG/ML VIAL IM PRN ×2 (16:27→16:28)
[2020-08-04] MEDS ORDERED: Promethazine HCl 25 MG/ML VIAL SLOW IVP PRN ×2 (16:27→16:28)
[2020-08-04] MEDS ORDERED: Ondansetron HCl/PF 4 MG/2 ML Vial IVP PRN ×2 (16:27→16:28)
[2020-08-04] MEDS ORDERED: HYDROmorphone 2 MG/ML VIAL SLOW IVP PRN (16:27)
[2020-08-04] MEDS ORDERED: HYDROmorphone 0.5 MG/0.5 ML SYRINGE ONE (16:35)
[2020-08-04] MEDS: Ibuprofen 200 MG TAB PO PRN (18:42)
[2020-08-04] MEDS ORDERED: cloNIDine 0.1 MG TAB PO PRN (18:44)
[2020-08-04] MEDS: busPIRone HCl 10 MG TAB PO SCH (20:04)
[2020-08-04] MEDS: Senokot S 8.6-50 MG TAB PO SCH (20:04)
[2020-08-04] MEDS: CEFAZOLIN 2 GM in Premix Bag 1 BAG IVPB SCH (20:58)
[2020-08-05] MEDS: traMADol HCl 50 MG TAB PO PRN ×3 (03:31→15:28)
[2020-08-05] MEDS: Cyclobenzaprine 10 MG TAB PO PRN ×2 (04:05→14:36)
[2020-08-05] MEDS: Sodium Chloride 0.9% 1,000 ML IV SCH (05:04)
[2020-08-05] MEDS: Acetaminophen 325 MG TAB PO SCH ×3 (05:15→17:16)
[2020-08-05] MEDS: CEFAZOLIN 2 GM in Premix Bag 1 BAG IVPB SCH (05:16)
[2020-08-05 07:37] LABS: Anion Gap 11 mmol/L (10-20); BUN (Urea Nitrogen) 17 mg/dL (8.4-25.7); Calc. Creatinine Clearance 108 mL/min (70-130); Calcium 7.7 mg/dL (7.8-10.44); Carbon Dioxide 27 mmol/L (23-31); Chloride 99 mmol/L (98-107); Glucose 132 mg/dL (80-115); Magnesium 1.8 mg/dL (1.6-2.6); Phosphorus 3.3 mg/dL (2.3-4.7); Potassium 4.2 mmol/L (3.5-5.1); Sodium 133 mmol/L (136-145)
[2020-08-05] MEDS: busPIRone HCl 10 MG TAB PO SCH (07:53)
[2020-08-05] MEDS: Famotidine 20 MG TAB PO SCH (07:53)
[2020-08-05] MEDS: Senokot S 8.6-50 MG TAB PO SCH (07:53)
[2020-08-05] MEDS: Gabapentin 300 MG CAP PO SCH (07:54)
[2020-08-05] MEDS: Ibuprofen 200 MG TAB PO PRN (07:54)
[2020-08-05] MEDS ORDERED: predniSONE 20 MG TAB PO SCH ×2 (08:00→11:59)
[2020-08-05 08:12] LABS: Hemoglobin 12.6 g/dL (14.0-18.0); Mean Corpuscular HGB CONC 31.1 g/dL (32.0-36.0); Mean Corpuscular Hemoglobin 28.5 pg (27.0-31.0); Mean Corpuscular Volume 91.7 fL (78.0-98.0); Mean Platelet Volume 7.1 fL (7.4-10.4); Platelet Count 417 thou/uL (130-400); RBC Distribution Width 15.5 % (11.5-14.5); White Blood Cell (WBC) Count 20.4 thou/uL (4.8-10.8)
[2020-08-05] MEDS ORDERED: Furosemide 40 MG TAB PO SCH (08:45)
[2020-08-05] MEDS ORDERED: Aspirin 81 mg Enteric Coated Tablet PO SCH (09:00)
[2020-08-05] MEDS ORDERED: Tamsulosin HCl 0.4 MG CAP PO SCH (09:00)
[2020-08-05] MEDS ORDERED: Polyethylene Glycol 3350 17 GM Packet PO SCH (09:00)
[2020-08-05] MEDS ORDERED: DULoxetine 30 MG CAP PO SCH (09:00)
[2020-08-05] MEDS ORDERED: Lisinopril 5 MG TAB PO SCH (09:00)
[2020-08-05 10:07] LABS: Band 15 % (5-11); Eosinophils 1 % (0-10); Lymphocytes 10 % (21-51); MDiff Complete? YES; Metamyelocyte 1 % (0-0); Monocytes 2 % (0-10); Neutrophil 71 % (42-75); Platelet Morphology Comment Appears Increased; Polychromasia SLIGHT = 2-3 cells (100X) (0-2/hpf)
[2020-08-05] MEDS ORDERED: cloNIDine 0.1 MG TAB PO PRN (10:24)
[2020-08-05 16:22] VITALS: BP 120/69; TEMP 98.5
[2020-08-06] MEDS ORDERED: Furosemide 40 MG TAB PO SCH (07:30)
== END 2020-08-05 18:30 | disposition home or self-care (01) | DRG 522 ==
LOC: ERS 09:03 → ERHOLD 11:18 → T4-B 18:42 → 2NO 20:13 → SURG A 08-04 18:07
PROVIDERS: ADMIT Surgery; ATTEND Surgery
PROC: 0SRR0JA Replacement of Right Hip Joint, Femoral Surface with Synthetic Substitute, Uncemented, Open Approach (ICD-10-PCS; principal; 2020-08-04)
DX: S72.011A Unspecified intracapsular fracture of right femur, initial encounter for closed fracture (principal); I50.32 Chronic diastolic (congestive) heart failure; D62 Acute posthemorrhagic anemia; J44.9 Chronic obstructive pulmonary disease, unspecified; G47.33 Obstructive sleep apnea (adult) (pediatric); N40.0 Benign prostatic hyperplasia without lower urinary tract symptoms; F17.210 Nicotine dependence, cigarettes, uncomplicated; W01.0XXA Fall on same level from slipping, tripping and stumbling without subsequent striking against object, initial encounter; Z20.822 Contact with and (suspected) exposure to COVID-19; Y92.192 Bathroom in other specified residential institution as the place of occurrence of the external cause; Z88.2 Allergy status to sulfonamides; Z91.041 Radiographic dye allergy status
CPT/HCPCS: 36415; 71045; 72170; 80048; 80053; 83735; 83880; 84100; 85025; 85610; 85730; 86850; 86900; 86901; 87635; 93005; 94640; 96374; 96375; J0690; J1170; J2270; J2405; J2704; J3010; J7512; J7620; U0003; U0005

== ENCOUNTER 2020-09-23 19:15 | Emergency (ER) | payer MEDICARE ==
[2020-09-23 19:40] LABS: #Basophils 0.1 thou/uL (0.0-0.2); #Eosinphils 0.1 thou/uL (0.0-0.7); #Lymphocytes 1.7 thou/uL (1.20-3.40); #Monocytes 0.9 thou/uL (0.11-0.59); #Neutrophils 9.1 thou/uL (1.40-6.50); %Basophils 0.7 % (0.0-1.0); %Lymphocytes 14.1 % (21.0-51.0); %Monocytes 7.6 % (0.0-10.0); %Neutrophils 76.5 % (42.0-75.0); Hemoglobin 14.7 g/dL (14.0-18.0); Mean Corpuscular HGB CONC 32.7 g/dL (32.0-36.0); Mean Corpuscular Hemoglobin 29.8 pg (27.0-31.0); Mean Corpuscular Volume 91.2 fL (78.0-98.0); Mean Platelet Volume 6.9 fL (7.4-10.4); Platelet Count 394 thou/uL (130-400); Red Blood Cell (RBC) Count 4.93 mill/uL (4.70-6.10); White Blood Cell (WBC) Count 11.9 thou/uL (4.8-10.8)
[2020-09-23 20:01] LABS: ALT (SGPT) 14 U/L (8-55); AST (SGOT) 11 U/L (5-34); Alkaline Phosphatase 99 U/L (40-110); Anion Gap 13 mmol/L (10-20); BUN (Urea Nitrogen) 23 mg/dL (8.4-25.7); Bilirubin, Total 0.2 mg/dL (0.2-1.2); Calc. Creatinine Clearance 0 mL/min (70-130); Carbon Dioxide 30 mmol/L (23-31); Chloride 102 mmol/L (98-107); Globulin 3.2 g/dL (2.4-3.5); Glucose 133 mg/dL (80-115); Potassium 4.3 mmol/L (3.5-5.1); Protein, Total 7.2 g/dL (5.8-8.1); Sodium 141 mmol/L (136-145)
== END 2020-09-23 20:42 | disposition home or self-care (01) ==
LOC: ERS 19:15
DX: J44.1 Chronic obstructive pulmonary disease with (acute) exacerbation (principal); G47.33 Obstructive sleep apnea (adult) (pediatric); F17.210 Nicotine dependence, cigarettes, uncomplicated; I50.9 Heart failure, unspecified
CPT/HCPCS: 36415; 71045; 80053; 83880; 84484; 85025; 93005; 94640; 94760; J7620

== ENCOUNTER 2021-01-24 13:40 | Outpatient (CLI) | payer MEDICARE | END 2021-01-24 13:41 | disposition home or self-care (01) | LOC: BICRAD 13:40 | PROVIDERS: ATTEND Internal Medicine Critical Care Medicine | DX: R06.00 Dyspnea, unspecified (principal); J98.4 Other disorders of lung | CPT/HCPCS: 36415; 71046; 80053; 80061 ==

== ENCOUNTER 2021-03-19 15:38 | Inpatient (IN) | payer MEDICARE ==
[2021-03-19 16:16] LABS: #Lymphocytes 0.7 thou/uL (1.20-3.40); #Monocytes 0.7 thou/uL (0.11-0.59); #Neutrophils 16.7 thou/uL (1.40-6.50); %Eosinophils 0.2 % (0.0-10.0); %Lymphocytes 3.7 % (21.0-51.0); %Monocytes 3.7 % (0.0-10.0); %Neutrophils 92.4 % (42.0-75.0); Mean Corpuscular HGB CONC 32.9 g/dL (32.0-36.0); Mean Corpuscular Hemoglobin 30.4 pg (27.0-31.0); Mean Corpuscular Volume 92.4 fL (78.0-98.0); Mean Platelet Volume 6.9 fL (7.4-10.4); Platelet Count 400 thou/uL (130-400); RBC Distribution Width 13.2 % (11.5-14.5); Red Blood Cell (RBC) Count 5.25 mill/uL (4.70-6.10); White Blood Cell (WBC) Count 18.1 thou/uL (4.8-10.8)
[2021-03-19 16:31] LABS: INR-International Normal Ratio 0.9; PTT 27.6 sec (22.9-36.1); Prothrombin Time 12.3 sec (12.0-14.7)
[2021-03-19 16:52] LABS: ALT (SGPT) 20 U/L (8-55); AST (SGOT) 19 U/L (5-34); Albumin 4.2 g/dL (3.4-4.8); Alkaline Phosphatase 104 U/L (40-110); Anion Gap 18 mmol/L (10-20); BUN (Urea Nitrogen) 23 mg/dL (8.4-25.7); Bilirubin, Total 0.4 mg/dL (0.2-1.2); Calc. Creatinine Clearance 0 mL/min (70-130); Calcium 9.3 mg/dL (7.8-10.44); Carbon Dioxide 24 mmol/L (23-31); Chloride 99 mmol/L (98-107); Globulin 3.9 g/dL (2.4-3.5); Glucose 177 mg/dL (80-115); Lipase 5 U/L (8-78); Protein, Total 8.1 g/dL (5.8-8.1); Sodium 137 mmol/L (136-145)
[2021-03-19 17:34] LABS: Bacteria/HPF None Seen HPF (None Seen); Bilirubin Negative (Negative); Blood, Urine 1+ (Negative); Clarity Turbid (Clear); Glucose, Urine (Dipstick) Normal (Negative); Ketone, Urine Negative (Negative); Leukocyte 500 Leu/uL (Negative); Nitrite Negative (Negative); Protein, Urine (Dipstick) 10 mg/dL (Neg-Trace); RBC/HPF 0-3 HPF (0-3); Specific Gravity, Urine 1.017 (1.002-1.036); Squamous Epithelial 0-3 HPF (0-3); Urobilinogen Normal mg/dL (Less than 2); pH, Urine 6.5 (5.0-9.0)
[2021-03-19] MEDS ORDERED: cefTRIAXone\\ROCEPHIN 2 GM VIAL ONE (17:54)
[2021-03-19] MEDS ORDERED: Guaifenesin DM 100-10/5 ML UDCUP PO PRN (19:39)
[2021-03-19] MEDS ORDERED: Senokot S 8.6-50 MG TAB PO PRN (19:39)
[2021-03-19] MEDS ORDERED: Ondansetron PF 4 MG/2 ML Vial IVP PRN (19:39)
[2021-03-19] MEDS ORDERED: hydrALAZINE 20 MG/ML VIAL SLOW IVP PRN (19:48)
[2021-03-19] MEDS ORDERED: Furosemide 40 MG/4 ML VIAL SLOW IVP SCH (20:00)
[2021-03-19] MEDS ORDERED: Dextrose 50% Abboject 50 ML SYRINGE SLOW IVP PRN (20:11)
[2021-03-19] MEDS ORDERED: Dextrose 5% in Water 1,000 ML IV PRN (20:11)
[2021-03-19] MEDS ORDERED: VANCOMYCIN 2 GRAM/400 ML BAG 2 GM in Premix Bag 1 BAG IVPB SCH (20:15)
[2021-03-19] MEDS ORDERED: Bisacodyl 5 MG TAB PO SCH (20:15)
[2021-03-19] MEDS ORDERED: Famotidine/PF 20 mg/2ml Vial SLOW IVP SCH (21:00)
[2021-03-19 21:19] VITALS: BMI 29.1
[2021-03-19] MEDS: Melatonin 3 MG TAB PO PRN (23:14)
[2021-03-19] MEDS: Nystatin Cream 30 GM TUBE TOP SCH (23:14)
[2021-03-19] MEDS: HYDROcodone/Acetaminophen 7.5/325 mg Tablet PO PRN (23:14)
[2021-03-20] MEDS: Acetaminophen 325 MG TAB PO PRN ×3 (01:21→17:49)
[2021-03-20 06:31] LABS: #Lymphocytes 1.3 thou/uL (1.20-3.40); #Monocytes 1.2 thou/uL (0.11-0.59); #Neutrophils 10.8 thou/uL (1.40-6.50); %Basophils 0.3 % (0.0-1.0); %Eosinophils 0.3 % (0.0-10.0); %Lymphocytes 9.5 % (21.0-51.0); %Monocytes 8.7 % (0.0-10.0); %Neutrophils 81.2 % (42.0-75.0); Hemoglobin 13.9 g/dL (14.0-18.0); Mean Corpuscular HGB CONC 32.9 g/dL (32.0-36.0); Mean Corpuscular Hemoglobin 30.6 pg (27.0-31.0); Mean Corpuscular Volume 92.8 fL (78.0-98.0); Mean Platelet Volume 6.7 fL (7.4-10.4); Platelet Count 346 thou/uL (130-400); RBC Distribution Width 13.1 % (11.5-14.5); Red Blood Cell (RBC) Count 4.55 mill/uL (4.70-6.10); White Blood Cell (WBC) Count 13.3 thou/uL (4.8-10.8)
[2021-03-20 06:42] LABS: Hemoglobin A1c 5.3 % (4.0-6.0)
[2021-03-20 06:53] LABS: ALT (SGPT) 17 U/L (8-55); AST (SGOT) 16 U/L (5-34); Albumin 3.3 g/dL (3.4-4.8); Alkaline Phosphatase 78 U/L (40-110); Anion Gap 12 mmol/L (10-20); BUN (Urea Nitrogen) 18 mg/dL (8.4-25.7); Bilirubin, Total 0.4 mg/dL (0.2-1.2); Calc. Creatinine Clearance 93 mL/min (70-130); Calcium 8.3 mg/dL (7.8-10.44); Carbon Dioxide 28 mmol/L (23-31); Chloride 103 mmol/L (98-107); Globulin 2.9 g/dL (2.4-3.5); Glucose 114 mg/dL (80-115); Potassium 3.7 mmol/L (3.5-5.1); Protein, Total 6.2 g/dL (5.8-8.1); Sodium 139 mmol/L (136-145)
[2021-03-20] MEDS: Mometasone 100 MCG/PUFF (1 INHALER) INH SCH ×2 (07:12→19:08)
[2021-03-20] MEDS: Bisacodyl 5 MG TAB PO SCH (08:21)
[2021-03-20] MEDS: Furosemide 20 MG TAB PO SCH ×2 (08:21→13:28)
[2021-03-20] MEDS: DULoxetine 30 MG CAP PO SCH (08:22)
[2021-03-20] MEDS: Polyethylene Glycol 3350 17 GM Packet PO SCH ×2 (08:22→20:58)
[2021-03-20] MEDS ORDERED: VANCOMYCIN 1.25 GM/250 ML BAG 1.25 GM in Premix Bag 1 BAG IVPB SCH (10:00)
[2021-03-20] MEDS: Nystatin Cream 30 GM TUBE TOP SCH ×3 (10:14→21:04)
[2021-03-20] MEDS: Bisacodyl 10 MG SUPP PR SCH ×3 (10:15→23:20)
[2021-03-20] MEDS: Ampicillin 2 GM in Sodium Chloride 0.9% 100 ML IVPB SCH ×2 (17:40→23:09)
[2021-03-20] MEDS ORDERED: cefTRIAXone\\ROCEPHIN 2 GM in Sodium Chloride 0.9% 100 ML IVPB SCH (18:00)
[2021-03-20 20:54] LABS: SARS-CoV-2 PCR by NAA Not Detected (NotDetected)
[2021-03-20] MEDS: Senokot S 8.6-50 MG TAB PO SCH (20:59)
[2021-03-20] MEDS: HYDROcodone/Acetaminophen 7.5/325 mg Tablet PO PRN (23:06)
[2021-03-20] MEDS: Melatonin 3 MG TAB PO PRN (23:07)
[2021-03-21] MEDS: Ampicillin 2 GM in Sodium Chloride 0.9% 100 ML IVPB SCH ×4 (05:23→23:26)
[2021-03-21] MEDS: Acetaminophen 325 MG TAB PO PRN ×2 (05:24→18:21)
[2021-03-21] MEDS: Mometasone 100 MCG/PUFF (1 INHALER) INH SCH ×2 (07:12→19:44)
[2021-03-21 07:53] LABS: #Basophils 0.1 thou/uL (0.0-0.2); #Eosinphils 0.2 thou/uL (0.0-0.7); #Lymphocytes 1.4 thou/uL (1.20-3.40); #Monocytes 1.1 thou/uL (0.11-0.59); #Neutrophils 9.6 thou/uL (1.40-6.50); %Basophils 0.4 % (0.0-1.0); %Eosinophils 1.9 % (0.0-10.0); %Lymphocytes 11.6 % (21.0-51.0); %Monocytes 8.6 % (0.0-10.0); %Neutrophils 77.5 % (42.0-75.0); Hemoglobin 13.4 g/dL (14.0-18.0); Mean Corpuscular HGB CONC 32.9 g/dL (32.0-36.0); Mean Corpuscular Hemoglobin 30.7 pg (27.0-31.0); Mean Corpuscular Volume 93.3 fL (78.0-98.0); Mean Platelet Volume 6.9 fL (7.4-10.4); Platelet Count 333 thou/uL (130-400); Red Blood Cell (RBC) Count 4.37 mill/uL (4.70-6.10); White Blood Cell (WBC) Count 12.4 thou/uL (4.8-10.8)
[2021-03-21 08:16] LABS: Anion Gap 12 mmol/L (10-20); BUN (Urea Nitrogen) 17 mg/dL (8.4-25.7); Calc. Creatinine Clearance 94 mL/min (70-130); Calcium 7.8 mg/dL (7.8-10.44); Carbon Dioxide 25 mmol/L (23-31); Chloride 104 mmol/L (98-107); Glucose 113 mg/dL (80-115); Potassium 3.1 mmol/L (3.5-5.1); Sodium 138 mmol/L (136-145)
[2021-03-21] MEDS: Furosemide 20 MG TAB PO SCH ×2 (08:50→14:23)
[2021-03-21] MEDS: Bisacodyl 5 MG TAB PO SCH (08:50)
[2021-03-21] MEDS: DULoxetine 30 MG CAP PO SCH (08:50)
[2021-03-21] MEDS: Nystatin Cream 30 GM TUBE TOP SCH ×3 (08:50→21:08)
[2021-03-21] MEDS: Polyethylene Glycol 3350 17 GM Packet PO SCH ×2 (08:51→21:08)
[2021-03-21] MEDS: HYDROcodone/Acetaminophen 5/325 mg Tablet PO PRN ×2 (10:42→14:23)
[2021-03-21] MEDS: Melatonin 3 MG TAB PO PRN (21:09)
[2021-03-21] MEDS: HYDROcodone/Acetaminophen 7.5/325 mg Tablet PO PRN (21:09)
[2021-03-22] MEDS: HYDROcodone/Acetaminophen 7.5/325 mg Tablet PO PRN ×3 (02:41→20:51)
[2021-03-22] MEDS: Ampicillin 2 GM in Sodium Chloride 0.9% 100 ML IVPB SCH ×4 (05:13→23:24)
[2021-03-22] MEDS: Acetaminophen 325 MG TAB PO PRN (06:19)
[2021-03-22 06:58] LABS: #Eosinphils 0.2 thou/uL (0.0-0.7); #Lymphocytes 1.2 thou/uL (1.20-3.40); #Monocytes 1.1 thou/uL (0.11-0.59); #Neutrophils 8.1 thou/uL (1.40-6.50); %Basophils 0.4 % (0.0-1.0); %Eosinophils 1.8 % (0.0-10.0); %Lymphocytes 11.4 % (21.0-51.0); %Monocytes 10.5 % (0.0-10.0); Hemoglobin 13.7 g/dL (14.0-18.0); Mean Corpuscular HGB CONC 32.4 g/dL (32.0-36.0); Mean Corpuscular Hemoglobin 30.2 pg (27.0-31.0); Mean Corpuscular Volume 93.1 fL (78.0-98.0); Mean Platelet Volume 6.8 fL (7.4-10.4); Platelet Count 356 thou/uL (130-400); RBC Distribution Width 13.1 % (11.5-14.5); Red Blood Cell (RBC) Count 4.55 mill/uL (4.70-6.10); White Blood Cell (WBC) Count 10.6 thou/uL (4.8-10.8)
[2021-03-22] MEDS: Mometasone 100 MCG/PUFF (1 INHALER) INH SCH ×2 (07:18→18:57)
[2021-03-22 07:24] LABS: Anion Gap 10 mmol/L (10-20); BUN (Urea Nitrogen) 12 mg/dL (8.4-25.7); Calc. Creatinine Clearance 114 mL/min (70-130); Calcium 8.2 mg/dL (7.8-10.44); Carbon Dioxide 29 mmol/L (23-31); Chloride 102 mmol/L (98-107); Glucose 110 mg/dL (80-115); Potassium 3.7 mmol/L (3.5-5.1); Sodium 137 mmol/L (136-145)
[2021-03-22] MEDS: Bisacodyl 5 MG TAB PO SCH (08:12)
[2021-03-22] MEDS: Furosemide 20 MG TAB PO SCH ×2 (08:13→14:55)
[2021-03-22] MEDS: DULoxetine 30 MG CAP PO SCH (08:13)
[2021-03-22] MEDS: Nystatin Cream 30 GM TUBE TOP SCH ×3 (08:13→20:52)
[2021-03-22] MEDS: Polyethylene Glycol 3350 17 GM Packet PO SCH ×2 (08:14→20:44)
[2021-03-22] MEDS: HYDROcodone/Acetaminophen 5/325 mg Tablet PO PRN (17:34)
[2021-03-22] MEDS: Senokot S 8.6-50 MG TAB PO SCH (20:44)
[2021-03-22] MEDS: Melatonin 3 MG TAB PO PRN (20:45)
[2021-03-23] MEDS: Ampicillin 2 GM in Sodium Chloride 0.9% 100 ML IVPB SCH ×3 (05:02→18:36)
[2021-03-23] MEDS: Mometasone 100 MCG/PUFF (1 INHALER) INH SCH ×2 (07:13→19:08)
[2021-03-23] MEDS: DULoxetine 30 MG CAP PO SCH (08:08)
[2021-03-23] MEDS: Polyethylene Glycol 3350 17 GM Packet PO SCH (08:08)
[2021-03-23] MEDS: Bisacodyl 5 MG TAB PO SCH (08:08)
[2021-03-23] MEDS: Furosemide 20 MG TAB PO SCH ×2 (08:09→13:31)
[2021-03-23] MEDS: Nystatin Cream 30 GM TUBE TOP SCH ×2 (08:10→14:33)
[2021-03-23 08:25] VITALS: TEMP 98.4
[2021-03-23] MEDS ORDERED: Bisacodyl 10 MG SUPP PR PRN (09:24)
[2021-03-23] MEDS: Senokot S 8.6-50 MG TAB PO SCH (11:40)
[2021-03-23] MEDS: Acetaminophen 325 MG TAB PO PRN (13:30)
[2021-03-23] MEDS: HYDROcodone/Acetaminophen 5/325 mg Tablet PO PRN (16:34)
[2021-03-23 18:33] VITALS: BP 131/84
== END 2021-03-23 19:16 | disposition home or self-care (01) | DRG 872 ==
LOC: ERS 15:38 → T4-A 19:25
PROVIDERS: ADMIT Internal Medicine; ATTEND Internal Medicine
DX: A41.81 Sepsis due to Enterococcus (principal); N39.0 Urinary tract infection, site not specified; N13.8 Other obstructive and reflux uropathy; I50.32 Chronic diastolic (congestive) heart failure; Z20.822 Contact with and (suspected) exposure to COVID-19; J44.9 Chronic obstructive pulmonary disease, unspecified; G47.33 Obstructive sleep apnea (adult) (pediatric); K59.04 Chronic idiopathic constipation; R73.9 Hyperglycemia, unspecified; N40.1 Benign prostatic hyperplasia with lower urinary tract symptoms; R33.8 Other retention of urine; Z88.2 Allergy status to sulfonamides; Z91.041 Radiographic dye allergy status; Z87.442 Personal history of urinary calculi; Z79.51 Long term (current) use of inhaled steroids; Z79.899 Other long term (current) drug therapy; Z99.89 Dependence on other enabling machines and devices; Z99.81 Dependence on supplemental oxygen; Z87.891 Personal history of nicotine dependence
CPT/HCPCS: 36415; 36416; 51702; 74176; 80048; 80053; 81003; 81015; 83036; 83605; 83690; 85025; 85610; 85730; 87040; 87077; 87086; 87149; 87186; 93306; 94640; 94660; 94760; 96365; J0290; J0696; J1940; J3370; J3490; J7620; S0028; U0003; U0005

== ENCOUNTER 2022-07-18 19:19 | Inpatient (IN) | payer MEDICARE ==
[2022-07-18] MEDS ORDERED: Vancomycin 1 GM/200 ML (FROZEN) BAG ONE (19:31)
[2022-07-18] MEDS ORDERED: Cefepime 2 GM VIAL ONE (19:31)
[2022-07-18 19:45] LABS: Hemoglobin 15.2 g/dL (14.0-18.0); Mean Corpuscular HGB CONC 32.6 g/dL (32.0-36.0); Mean Corpuscular Hemoglobin 29.2 pg (27.0-31.0); Mean Corpuscular Volume 89.6 fl (78.0-98.0); Mean Platelet Volume 8.7 fL (7.4-10.4); Platelet Count 381 10x3/uL (130-400); RBC Distribution Width 13.9 % (11.5-14.5); Red Blood Cell (RBC) Count 5.21 mill/uL (4.70-6.10); White Blood Cell (WBC) Count 25.5 10x3/uL (4.8-10.8)
[2022-07-18 19:54] LABS: Actual Bicarbonate (HCO3a) 25.2 mEq/L (22-28); Analyzer IN Cardio ER; Base Excess (BEa) -0.5 mEq/L (-2.0 to +3.0); CO2 Tension 45.5 mmHg (35.0-45.0); Calcium, Ionized (arterial) 1.05 mmol/L (1.12-1.30); Carboxyhemoglobin (COHb) 0.7 gm% (0.0-3.0); Hemoglobin (Hb) 13.9 g/dL (14.0-18.0); O2 Tension (PaO2), arterial 110.1 mmHg (> 80.0); Potassium - ABG Lab 4.02 mmol/L (3.70-5.30); pH, Arterial 7.36 (7.35-7.45)
[2022-07-18] MEDS ORDERED: Acetaminophen 650 MG Suppository ONE (19:55)
[2022-07-18 20:18] LABS: Band 16 % (5-11); Lymphocytes 7 % (21-51); MDiff Complete? YES; Monocytes 3 % (0-10); Neutrophil 74 % (42-75); Platelet Morphology Comment Appears Adequate; Polychromasia SLIGHT = 2-3 cells (100X) (0-2/hpf); Stomatocytes SLIGHT = 2-5 cells (100X) (0-1/hpf)
[2022-07-18 21:03] LABS: SARS-CoV-2 NAA Rapid Test Not Detected (NotDetected)
[2022-07-18] MEDS ORDERED: Ipratropium/Albuterol 3 ML NEB ONE (21:51)
[2022-07-18 23:29] LABS: Troponin I 0.026 ng/mL (< 0.028)
[2022-07-18] MEDS ORDERED: Senokot S 8.6-50 MG TAB PO PRN (23:31)
[2022-07-18 23:45] LABS: Bacteria/HPF None Seen HPF (None Seen); Bilirubin Negative (Negative); Blood, Urine Negative (Negative); Clarity Clear (Clear); Glucose, Urine (Dipstick) Normal (Negative); Ketone, Urine Negative (Negative); Leukocyte Negative Leu/uL (Negative); Nitrite Negative (Negative); Protein, Urine (Dipstick) 50 mg/dL (Neg-Trace); RBC/HPF 0-3 HPF (0-3); Specific Gravity, Urine 1.023 (1.002-1.036); Squamous Epithelial 0-3 HPF (0-3); Urobilinogen Normal mg/dL (Less than 2); WBC/HPF 0-3 HPF (0-3); pH, Urine 5.5 (5.0-9.0)
[2022-07-18 23:53] LABS: Amphetamine Not Detected (NotDetected); Barbiturates Screen Not Detected (NotDetected); Benzodiazepine Screen Not Detected (NotDetected); Cocaine Metabolite Screen Not Detected (NotDetected); Methadone Not Detected (NotDetected); Methamphetamine Not Detected (NotDetected); Opiate Screen Detected (NotDetected); Oxycodone Screen Not Detected (NotDetected); Phencyclidine (PCP) Not Detected (NotDetected); THC/Cannabinoid Screen Not Detected (NotDetected); Tricyclic Screen Not Detected (NotDetected)
[2022-07-18 23:53] LABS: Albumin 3.3 g/dL (3.4-4.8)
[2022-07-18 23:54] LABS: Chloride 106 mmol/L (98-107); Potassium 4.3 mmol/L (3.5-5.1); Sodium 136 mmol/L (136-145)
[2022-07-18 23:55] LABS: Calcium 7.7 mg/dL (7.8-10.44)
[2022-07-18 23:56] LABS: Globulin 3.2 g/dL (2.4-3.5); Glucose 193 mg/dL (80-115); Lactic Acid 1.2 mmol/L (0.5-2.2); Protein, Total 6.5 g/dL (5.8-8.1)
[2022-07-18 23:57] LABS: Anion Gap 12 mmol/L (10-20); Bilirubin, Total 0.2 mg/dL (0.2-1.2); Carbon Dioxide 22 mmol/L (23-31)
[2022-07-18 23:58] LABS: Alcohol Less than 10 mg/dL (Less than 10); Alkaline Phosphatase 111 U/L (40-110)
[2022-07-18 23:59] LABS: Calc. Creatinine Clearance 0 mL/min (70-130); Estimated GFR 72
[2022-07-19] LABS: BUN (Urea Nitrogen) 22 mg/dL (8.4-25.7)
[2022-07-19 00:01] LABS: AST (SGOT) 12 U/L (5-34); Salicylate Less than 8.0 mg/dL (15.0-30.0)
[2022-07-19 00:02] LABS: ALT (SGPT) 15 U/L (8-55); Acetaminophen Less than 10.0 mcg/mL (10.0-30.0)
[2022-07-19] MEDS ORDERED: Ipratropium/Albuterol 3 ML NEB NEB PRN (00:15)
[2022-07-19] MEDS ORDERED: Nystatin Powder 15 GM BOT TOP PRN (00:19)
[2022-07-19] MEDS ORDERED: Dextrose 5% in Water 1,000 ML IV PRN (00:25)
[2022-07-19] MEDS ORDERED: Dextrose 50% Abboject 50 ML SYRINGE SLOW IVP PRN (00:25)
[2022-07-19] MEDS ORDERED: HumaLOG 300 UNITS/3 ML VIAL SC PRN (00:25)
[2022-07-19] MEDS ORDERED: Electrolyte Replacement Protocol 1 EACH FS PRN (00:26)
[2022-07-19] MEDS ORDERED: Sodium Chloride 0.9% 1,000 ML IV SCH (00:30)
[2022-07-19] MEDS ORDERED: Ipratropium/Albuterol 3 ML NEB NEB SCH (01:00)
[2022-07-19] MEDS: Vancomycin 1.5 GRAM/300 ML BAG 1.5 GM in Premix Bag 1 BAG IVPB SCH ×2 (01:53→15:34)
[2022-07-19 01:55] LABS: ALV-art Gradient 260.825 mmHg (0-20); Puncture Site LBA
[2022-07-19 01:59] LABS: Hemoglobin 12.5 g/dL (14.0-18.0); Mean Corpuscular Hemoglobin 28.8 pg (27.0-31.0); Mean Corpuscular Volume 90.1 fl (78.0-98.0); Mean Platelet Volume 7.1 fL (7.4-10.4); Platelet Count 323 10x3/uL (130-400); RBC Distribution Width 13.3 % (11.5-14.5); Red Blood Cell (RBC) Count 4.34 mill/uL (4.70-6.10)
[2022-07-19] MEDS: Ipratropium/Albuterol 3 ML NEB NEB SCH ×6 (02:00→21:49)
[2022-07-19 02:20] LABS: Band 6 % (5-11); Lymphocytes 3 % (21-51); MDiff Complete? YES; Monocytes 1 % (0-10); Neutrophil 90 % (42-75); Platelet Morphology Comment Appears Adequate; Polychromasia SLIGHT = 2-3 cells (100X) (0-2/hpf); Stomatocytes SLIGHT = 2-5 cells (100X) (0-1/hpf)
[2022-07-19 02:27] LABS: Troponin I 0.034 ng/mL (< 0.028)
[2022-07-19 02:33] LABS: ALT (SGPT) 15 U/L (8-55); AST (SGOT) 13 U/L (5-34); Alkaline Phosphatase 108 U/L (40-110); Anion Gap 10 mmol/L (10-20); BUN (Urea Nitrogen) 22 mg/dL (8.4-25.7); Bilirubin, Total 0.2 mg/dL (0.2-1.2); Calc. Creatinine Clearance 91 mL/min (70-130); Calcium 7.9 mg/dL (7.8-10.44); Carbon Dioxide 25 mmol/L (23-31); Chloride 106 mmol/L (98-107); Estimated GFR 72; Globulin 3.2 g/dL (2.4-3.5); Glucose 204 mg/dL (80-115); Magnesium 2.7 mg/dL (1.6-2.6); Potassium 4.4 mmol/L (3.5-5.1); Protein, Total 6.2 g/dL (5.8-8.1); Sodium 137 mmol/L (136-145)
[2022-07-19] MEDS: Cefepime 2 GM in Sodium Chloride 0.9% 100 ML IVPB SCH ×2 (08:17→20:21)
[2022-07-19] MEDS: Famotidine 20 MG TAB PO SCH ×2 (08:17→20:22)
[2022-07-19] MEDS: methylPREDNISolone Sod Succ 40 MG VIAL IVP SCH ×2 (08:18→20:21)
[2022-07-19] MEDS: Polyethylene Glycol 3350 17 GM Packet PO SCH ×2 (08:18→20:21)
[2022-07-19] MEDS ORDERED: Vancomycin HCl 1.5 GM in Sodium Chloride 0.9% 250 ML 300 ML IVPB SCH (09:00)
[2022-07-19] MEDS: Famotidine/PF 20 mg/2ml Vial SLOW IVP SCH ×2 (10:57→20:22)
[2022-07-19] MEDS: HumaLOG 300 UNITS/3 ML VIAL SC PRN ×2 (12:01→17:02)
[2022-07-19] MEDS: Morphine 2 MG/ML VIAL SLOW IVP PRN ×2 (17:05→21:10)
[2022-07-19] MEDS ORDERED: Albuterol 200 PUFF (6.7GM INHALER) INH PRN (20:09)
[2022-07-20] MEDS: Ipratropium/Albuterol 3 ML NEB NEB SCH ×6 (02:18→23:04)
[2022-07-20] MEDS: Vancomycin 1.5 GRAM/300 ML BAG 1.5 GM in Premix Bag 1 BAG IVPB SCH ×2 (03:11→15:06)
[2022-07-20] MEDS: Morphine 2 MG/ML VIAL SLOW IVP PRN ×4 (03:27→21:52)
[2022-07-20] MEDS: Famotidine/PF 20 mg/2ml Vial SLOW IVP SCH ×2 (07:34→20:12)
[2022-07-20] MEDS: Cefepime 2 GM in Sodium Chloride 0.9% 100 ML IVPB SCH ×3 (09:59→18:29)
[2022-07-20] MEDS: Famotidine 20 MG TAB PO SCH ×2 (10:21→20:12)
[2022-07-20] MEDS: Polyethylene Glycol 3350 17 GM Packet PO SCH ×2 (10:21→20:11)
[2022-07-20] MEDS: methylPREDNISolone Sod Succ 40 MG VIAL IVP SCH ×2 (10:21→20:11)
[2022-07-20 13:31] LABS: Vancomycin, Trough 25.6 ug/mL
[2022-07-20 17:54] LABS: HIV (1/2) Antibody/Antigen Non-Reactive (NonReactive); HIV 1/2 INDEX 0.13 S/CO (<1.00)
[2022-07-20] MEDS: Furosemide 40 MG TAB PO SCH (20:11)
[2022-07-20] MEDS: Sertraline 25 MG TAB PO SCH (20:11)
[2022-07-21] MEDS ORDERED: Vancomycin HCl 750 MG in Sodium Chloride 0.9% 250 ML 250 ML IVPB SCH (02:00)
[2022-07-21] MEDS: Cefepime 2 GM in Sodium Chloride 0.9% 100 ML IVPB SCH ×3 (02:41→17:19)
[2022-07-21] MEDS: Ipratropium/Albuterol 3 ML NEB NEB SCH ×6 (02:54→23:21)
[2022-07-21] MEDS: Morphine 2 MG/ML VIAL SLOW IVP PRN ×5 (03:15→21:18)
[2022-07-21 04:06] LABS: #Lymphocytes 0.8 thou/uL (1.20-3.40); #Monocytes 0.5 thou/uL (0.11-0.59); %Basophils 0.1 % (0.0-1.0); %Eosinophils 0.1 % (0.0-10.0); %Lymphocytes 5.6 % (21.0-51.0); %Monocytes 3.7 % (0.0-10.0); %Neutrophils 90.6 % (42.0-75.0); Hemoglobin 12.4 g/dL (14.0-18.0); Mean Corpuscular HGB CONC 32.3 g/dL (32.0-36.0); Mean Corpuscular Volume 89.8 fl (78.0-98.0); Mean Platelet Volume 7.3 fL (7.4-10.4); Platelet Count 364 10x3/uL (130-400); RBC Distribution Width 13.4 % (11.5-14.5); Red Blood Cell (RBC) Count 4.27 mill/uL (4.70-6.10); White Blood Cell (WBC) Count 14.4 10x3/uL (4.8-10.8)
[2022-07-21 04:25] LABS: Anion Gap 12 mmol/L (10-20); BUN (Urea Nitrogen) 21 mg/dL (8.4-25.7); CRP (Inflammatory) 6.35 mg/dL (= or < 0.5); Calc. Creatinine Clearance 105 mL/min (70-130); Calcium 8.1 mg/dL (7.8-10.44); Carbon Dioxide 26 mmol/L (23-31); Chloride 103 mmol/L (98-107); Estimated GFR 84; Glucose 129 mg/dL (80-115); Potassium 4.6 mmol/L (3.5-5.1); Sodium 136 mmol/L (136-145)
[2022-07-21] MEDS: methylPREDNISolone Sod Succ 40 MG VIAL IVP SCH ×2 (09:56→20:57)
[2022-07-21] MEDS: Polyethylene Glycol 3350 17 GM Packet PO SCH ×2 (09:57→20:57)
[2022-07-21] MEDS: Atorvastatin Calcium 20 MG TAB PO SCH (09:58)
[2022-07-21] MEDS: Famotidine 20 MG TAB PO SCH ×2 (09:58→20:57)
[2022-07-21] MEDS: Furosemide 80 MG TAB PO SCH (09:59)
[2022-07-21] MEDS: Famotidine/PF 20 mg/2ml Vial SLOW IVP SCH ×2 (09:59→19:54)
[2022-07-21] MEDS: Sertraline 25 MG TAB PO SCH (20:57)
[2022-07-21] MEDS: Furosemide 40 MG TAB PO SCH (20:57)
[2022-07-22] MEDS ORDERED: ALPRAZolam 0.25 MG TAB PO PRN (00:23)
[2022-07-22] MEDS: Cefepime 2 GM in Sodium Chloride 0.9% 100 ML IVPB SCH ×3 (01:53→18:20)
[2022-07-22] MEDS ORDERED: DOPamine 400 MG/D5W 250 ML 250 ML IVPB SCH (02:15)
[2022-07-22] MEDS: Ipratropium/Albuterol 3 ML NEB NEB SCH ×3 (02:45→11:15)
[2022-07-22 02:54] LABS: Troponin I Less than 0.010 ng/mL (< 0.028)
[2022-07-22] MEDS: Morphine 2 MG/ML VIAL SLOW IVP PRN ×5 (05:29→23:00)
[2022-07-22 05:51] LABS: Anion Gap 15 mmol/L (10-20); BUN (Urea Nitrogen) 22 mg/dL (8.4-25.7); CRP (Inflammatory) 3.36 mg/dL (= or < 0.5); Calc. Creatinine Clearance 107 mL/min (70-130); Calcium 8.4 mg/dL (7.8-10.44); Carbon Dioxide 24 mmol/L (23-31); Chloride 102 mmol/L (98-107); Estimated GFR 87; Glucose 129 mg/dL (80-115); Magnesium 2.2 mg/dL (1.6-2.6); Potassium 4.2 mmol/L (3.5-5.1); Sodium 137 mmol/L (136-145)
[2022-07-22 06:20] LABS: Band 3 % (5-11); Hemoglobin 14.1 g/dL (14.0-18.0); Lymphocytes 8 % (21-51); MDiff Complete? YES; Mean Corpuscular HGB CONC 32.2 g/dL (32.0-36.0); Mean Corpuscular Hemoglobin 28.5 pg (27.0-31.0); Mean Corpuscular Volume 88.7 fl (78.0-98.0); Mean Platelet Volume 7.3 fL (7.4-10.4); Metamyelocyte 1 % (0-0); Monocytes 3 % (0-10); Neutrophil 85 % (42-75); Platelet Count 458 10x3/uL (130-400); Platelet Morphology Comment Appears Increased; RBC Distribution Width 13.2 % (11.5-14.5); RBC Morphology Normal; Red Blood Cell (RBC) Count 4.95 mill/uL (4.70-6.10); White Blood Cell (WBC) Count 15.7 10x3/uL (4.8-10.8)
[2022-07-22 06:27] LABS: Troponin I Less than 0.010 ng/mL (< 0.028)
[2022-07-22] MEDS: Famotidine 20 MG TAB PO SCH ×2 (09:18→19:57)
[2022-07-22] MEDS: methylPREDNISolone Sod Succ 40 MG VIAL IVP SCH (09:18)
[2022-07-22] MEDS: Famotidine/PF 20 mg/2ml Vial SLOW IVP SCH ×2 (09:18→19:57)
[2022-07-22] MEDS: Atorvastatin Calcium 20 MG TAB PO SCH (09:18)
[2022-07-22] MEDS: Furosemide 80 MG TAB PO SCH (09:18)
[2022-07-22] MEDS: Polyethylene Glycol 3350 17 GM Packet PO SCH ×2 (09:19→19:57)
[2022-07-22] MEDS ORDERED: Albuterol HFA (OR) 200 PUFF INH INH PRN (11:58)
[2022-07-22] MEDS: ALPRAZolam 0.25 MG TAB PO PRN ×2 (12:00→21:32)
[2022-07-22] MEDS: Furosemide 40 MG TAB PO SCH (19:57)
[2022-07-22] MEDS: guaiFENesin ER 600 MG TAB PO SCH (19:57)
[2022-07-22] MEDS: Sertraline 25 MG TAB PO SCH (19:57)
[2022-07-23] MEDS: Cefepime 2 GM in Sodium Chloride 0.9% 100 ML IVPB SCH ×3 (01:50→18:41)
[2022-07-23] MEDS: Morphine 2 MG/ML VIAL SLOW IVP PRN ×5 (03:05→23:06)
[2022-07-23 05:02] LABS: Anion Gap 16 mmol/L (10-20); BUN (Urea Nitrogen) 28 mg/dL (8.4-25.7); Band 9 % (5-11); Calc. Creatinine Clearance 89 mL/min (70-130); Calcium 8.2 mg/dL (7.8-10.44); Carbon Dioxide 24 mmol/L (23-31); Chloride 102 mmol/L (98-107); Estimated GFR 74; Glucose 107 mg/dL (80-115); Hemoglobin 15.1 g/dL (14.0-18.0); Lymphocytes 8 % (21-51); MDiff Complete? YES; Mean Corpuscular HGB CONC 32.3 g/dL (32.0-36.0); Mean Corpuscular Hemoglobin 28.7 pg (27.0-31.0); Mean Platelet Volume 7.5 fL (7.4-10.4); Monocytes 15 % (0-10); Neutrophil 68 % (42-75); Platelet Count 481 10x3/uL (130-400); Platelet Morphology Comment Appears Increased; Potassium 3.4 mmol/L (3.5-5.1); RBC Distribution Width 13.6 % (11.5-14.5); RBC Morphology Normal; Red Blood Cell (RBC) Count 5.27 mill/uL (4.70-6.10); Sodium 139 mmol/L (136-145); White Blood Cell (WBC) Count 17.4 10x3/uL (4.8-10.8)
[2022-07-23] MEDS: Acetaminophen 325 MG TAB PO PRN ×2 (05:53→16:11)
[2022-07-23] MEDS: Famotidine/PF 20 mg/2ml Vial SLOW IVP SCH ×3 (07:42→19:30)
[2022-07-23] MEDS: Furosemide 80 MG TAB PO SCH (07:50)
[2022-07-23] MEDS: Atorvastatin Calcium 20 MG TAB PO SCH (07:50)
[2022-07-23] MEDS: Famotidine 20 MG TAB PO SCH ×2 (07:50→21:01)
[2022-07-23] MEDS: methylPREDNISolone Sod Succ 40 MG VIAL IVP SCH (07:50)
[2022-07-23] MEDS: guaiFENesin ER 600 MG TAB PO SCH ×2 (07:50→21:01)
[2022-07-23] MEDS: Polyethylene Glycol 3350 17 GM Packet PO SCH ×2 (07:52→21:01)
[2022-07-23] MEDS ORDERED: Potassium Chloride 20 MEQ TAB PO SCH (08:45)
[2022-07-23] MEDS: Sertraline 25 MG TAB PO SCH (21:01)
[2022-07-23] MEDS: Furosemide 40 MG TAB PO SCH (21:01)
[2022-07-23] MEDS: ALPRAZolam 0.25 MG TAB PO PRN (23:12)
[2022-07-24] MEDS: Morphine 2 MG/ML VIAL SLOW IVP PRN ×4 (03:14→20:27)
[2022-07-24] MEDS: Cefepime 2 GM in Sodium Chloride 0.9% 100 ML IVPB SCH ×3 (03:14→17:14)
[2022-07-24] MEDS: Acetaminophen 325 MG TAB PO PRN ×2 (03:14→14:33)
[2022-07-24 06:57] LABS: Hemoglobin 15.4 g/dL (14.0-18.0); Mean Corpuscular HGB CONC 30.6 g/dL (32.0-36.0); Mean Corpuscular Hemoglobin 27.5 pg (27.0-31.0); Mean Corpuscular Volume 89.8 fl (78.0-98.0); Mean Platelet Volume 7.2 fL (7.4-10.4); Platelet Count 553 10x3/uL (130-400); RBC Distribution Width 13.4 % (11.5-14.5); White Blood Cell (WBC) Count 18.7 10x3/uL (4.8-10.8)
[2022-07-24 07:48] LABS: Anion Gap 14 mmol/L (10-20); BUN (Urea Nitrogen) 31 mg/dL (8.4-25.7); Calc. Creatinine Clearance 87 mL/min (70-130); Calcium 8.4 mg/dL (7.8-10.44); Carbon Dioxide 26 mmol/L (23-31); Chloride 102 mmol/L (98-107); Estimated GFR 72; Glucose 118 mg/dL (80-115); Potassium 3.7 mmol/L (3.5-5.1); Sodium 138 mmol/L (136-145)
[2022-07-24 07:58] LABS: Band 3 % (5-11); Eosinophils 2 % (0-10); Lymphocytes 9 % (21-51); MDiff Complete? YES; Monocytes 9 % (0-10); Neutrophil 77 % (42-75); Platelet Morphology Comment Appears Increased; RBC Morphology Normal
[2022-07-24] MEDS: ALPRAZolam 0.25 MG TAB PO PRN ×2 (08:17→22:33)
[2022-07-24] MEDS: Famotidine 20 MG TAB PO SCH ×2 (08:18→20:27)
[2022-07-24] MEDS: Atorvastatin Calcium 20 MG TAB PO SCH (08:18)
[2022-07-24] MEDS: Famotidine/PF 20 mg/2ml Vial SLOW IVP SCH ×2 (08:18→20:28)
[2022-07-24] MEDS: guaiFENesin ER 600 MG TAB PO SCH ×2 (08:19→20:27)
[2022-07-24] MEDS: methylPREDNISolone Sod Succ 40 MG VIAL IVP SCH (08:19)
[2022-07-24] MEDS: Furosemide 80 MG TAB PO SCH (08:19)
[2022-07-24] MEDS: Polyethylene Glycol 3350 17 GM Packet PO SCH ×2 (08:20→20:28)
[2022-07-24] MEDS: Furosemide 40 MG TAB PO SCH (20:27)
[2022-07-24] MEDS: Sertraline 25 MG TAB PO SCH (20:27)
[2022-07-25] MEDS: Cefepime 2 GM in Sodium Chloride 0.9% 100 ML IVPB SCH ×3 (01:37→17:11)
[2022-07-25] MEDS: Morphine 2 MG/ML VIAL SLOW IVP PRN ×4 (02:27→19:44)
[2022-07-25] MEDS: Acetaminophen 325 MG TAB PO PRN ×2 (04:03→22:39)
[2022-07-25 08:11] LABS: Hemoglobin 14.8 g/dL (14.0-18.0); Mean Corpuscular HGB CONC 31.4 g/dL (32.0-36.0); Mean Corpuscular Hemoglobin 28.1 pg (27.0-31.0); Mean Corpuscular Volume 89.3 fl (78.0-98.0); Platelet Count 538 10x3/uL (130-400); RBC Distribution Width 13.5 % (11.5-14.5); Red Blood Cell (RBC) Count 5.26 mill/uL (4.70-6.10); White Blood Cell (WBC) Count 19.1 10x3/uL (4.8-10.8)
[2022-07-25] MEDS: Famotidine/PF 20 mg/2ml Vial SLOW IVP SCH ×2 (08:58→20:30)
[2022-07-25] MEDS: guaiFENesin ER 600 MG TAB PO SCH ×2 (08:59→19:44)
[2022-07-25] MEDS: Furosemide 80 MG TAB PO SCH (08:59)
[2022-07-25] MEDS: Famotidine 20 MG TAB PO SCH ×2 (08:59→19:44)
[2022-07-25] MEDS: Atorvastatin Calcium 20 MG TAB PO SCH (08:59)
[2022-07-25] MEDS: predniSONE 20 MG TAB PO SCH (08:59)
[2022-07-25] MEDS: Polyethylene Glycol 3350 17 GM Packet PO SCH ×2 (09:00→19:45)
[2022-07-25 09:03] LABS: Hypochromia SLIGHT = 6-15 cells (100X) (0-5/hpf); Lymphocytes 19 % (21-51); MDiff Complete? YES; Monocytes 5 % (0-10); Myelocyte 1 % (0-0); Neutrophil 71 % (42-75); Ovalocytes SLIGHT = 2-5 cells (100X) (0-1/hpf); Platelet Morphology Comment Appears Increased; Polychromasia SLIGHT = 2-3 cells (100X) (0-2/hpf); Reactive Lymphocytes 3 % (0-10)
[2022-07-25] MEDS: ALPRAZolam 0.25 MG TAB PO PRN ×2 (11:39→17:11)
[2022-07-25] MEDS: Albuterol HFA (OR) 200 PUFF INH INH SCH (14:48)
[2022-07-25] MEDS: Sertraline 25 MG TAB PO SCH (19:44)
[2022-07-25] MEDS: Furosemide 40 MG TAB PO SCH (19:44)
[2022-07-26] MEDS: Albuterol HFA (OR) 200 PUFF INH INH SCH ×5 (00:20→19:00)
[2022-07-26] MEDS: Cefepime 2 GM in Sodium Chloride 0.9% 100 ML IVPB SCH ×3 (01:42→17:25)
[2022-07-26] MEDS: Morphine 2 MG/ML VIAL SLOW IVP PRN ×5 (01:42→21:27)
[2022-07-26] MEDS: ALPRAZolam 0.25 MG TAB PO PRN ×2 (03:15→23:28)
[2022-07-26] MEDS ORDERED: predniSONE 20 MG TAB PO SCH (08:00)
[2022-07-26] MEDS: Atorvastatin Calcium 20 MG TAB PO SCH (08:58)
[2022-07-26] MEDS: guaiFENesin ER 600 MG TAB PO SCH ×2 (08:58→21:26)
[2022-07-26] MEDS: Famotidine 20 MG TAB PO SCH ×2 (08:59→21:27)
[2022-07-26] MEDS: Furosemide 80 MG TAB PO SCH (08:59)
[2022-07-26] MEDS: predniSONE 20 MG TAB PO SCH (08:59)
[2022-07-26] MEDS: Famotidine/PF 20 mg/2ml Vial SLOW IVP SCH ×2 (09:15→21:27)
[2022-07-26] MEDS: Polyethylene Glycol 3350 17 GM Packet PO SCH ×2 (09:15→21:27)
[2022-07-26 13:35] VITALS: BMI 29.3
[2022-07-26] MEDS: Sertraline 25 MG TAB PO SCH (21:26)
[2022-07-26] MEDS: Furosemide 40 MG TAB PO SCH (21:27)
[2022-07-27] MEDS: Cefepime 2 GM in Sodium Chloride 0.9% 100 ML IVPB SCH ×2 (01:01→09:38)
[2022-07-27] MEDS: Morphine 2 MG/ML VIAL SLOW IVP PRN ×4 (02:53→15:01)
[2022-07-27] MEDS ORDERED: predniSONE 20 MG TAB PO SCH (08:00)
[2022-07-27] MEDS: Atorvastatin Calcium 20 MG TAB PO SCH (09:38)
[2022-07-27] MEDS: Furosemide 80 MG TAB PO SCH (09:38)
[2022-07-27] MEDS: guaiFENesin ER 600 MG TAB PO SCH (09:38)
[2022-07-27] MEDS: Famotidine 20 MG TAB PO SCH (09:38)
[2022-07-27] MEDS: Famotidine/PF 20 mg/2ml Vial SLOW IVP SCH (09:39)
[2022-07-27] MEDS: Albuterol HFA (OR) 200 PUFF INH INH SCH ×2 (09:39→15:50)
[2022-07-27] MEDS: Polyethylene Glycol 3350 17 GM Packet PO SCH (09:39)
[2022-07-27] MEDS ORDERED: Vancomycin 1.5 GRAM/300 ML BAG 1.5 GM in Premix Bag 1 BAG IVPB SCH (14:00)
[2022-07-27 16:47] VITALS: BP 118/80; TEMP 98.3
== END 2022-07-27 18:45 | disposition home health service (06) | DRG 871 ==
LOC: ERS 19:19 → CCU 22:12 → IMCU/EMU 07-19 23:15 → T4-A 07-21 13:45 → IMCU/EMU 07-22 02:56 → 2NO 07-26 11:36
PROVIDERS: ADMIT Internal Medicine; ATTEND Internal Medicine
PROC: 3E03329 Introduction of Other Anti-infective into Peripheral Vein, Percutaneous Approach (ICD-10-PCS; principal; 2022-07-18)
PROC: 5A09357 Assistance with Respiratory Ventilation, Less than 24 Consecutive Hours, Continuous Positive Airway Pressure (ICD-10-PCS; 2022-07-18)
PROC: 02HV33Z Insertion of Infusion Device into Superior Vena Cava, Percutaneous Approach (ICD-10-PCS; 2022-07-25)
PROC: B5181ZA Fluoroscopy of Superior Vena Cava using Low Osmolar Contrast, Guidance (ICD-10-PCS; 2022-07-25)
PROC: B548ZZA Ultrasonography of Superior Vena Cava, Guidance (ICD-10-PCS; 2022-07-25)
DX: A40.3 Sepsis due to Streptococcus pneumoniae (principal); Z20.822 Contact with and (suspected) exposure to COVID-19; J13 Pneumonia due to Streptococcus pneumoniae; J80 Acute respiratory distress syndrome; R65.20 Severe sepsis without septic shock; T81.41XA Infection following a procedure, superficial incisional surgical site, initial encounter; J44.1 Chronic obstructive pulmonary disease with (acute) exacerbation; I50.32 Chronic diastolic (congestive) heart failure; L03.114 Cellulitis of left upper limb; J44.0 Chronic obstructive pulmonary disease with (acute) lower respiratory infection; G47.33 Obstructive sleep apnea (adult) (pediatric); E66.9 Obesity, unspecified; N40.0 Benign prostatic hyperplasia without lower urinary tract symptoms; I11.0 Hypertensive heart disease with heart failure; Y83.8 Other surgical procedures as the cause of abnormal reaction of the patient, or of later complication, without mention of misadventure at the time of the procedure; B96.5 Pseudomonas (aeruginosa) (mallei) (pseudomallei) as the cause of diseases classified elsewhere; B95.61 Methicillin susceptible Staphylococcus aureus infection as the cause of diseases classified elsewhere; F32.A Depression, unspecified; E78.5 Hyperlipidemia, unspecified; R00.1 Bradycardia, unspecified; I49.3 Ventricular premature depolarization; Z85.828 Personal history of other malignant neoplasm of skin; Z88.2 Allergy status to sulfonamides; Z91.041 Radiographic dye allergy status; Z79.899 Other long term (current) drug therapy; Z79.51 Long term (current) use of inhaled steroids; Z68.29 Body mass index [BMI] 29.0-29.9, adult; Z87.891 Personal history of nicotine dependence; Z98.890 Other specified postprocedural states; Z87.442 Personal history of urinary calculi; Z91.199 Patient's noncompliance with other medical treatment and regimen due to unspecified reason
CPT/HCPCS: 36415; 36416; 36569; 36600; 71045; 80048; 80053; 80202; 80306; 80307; 81003; 81015; 82805; 83605; 83735; 83880; 84443; 84484; 85025; 85652; 86140; 87040; 87070; 87077; 87086; 87149; 87186; 87205; 87389; 93005; 93010; 93306; 93970; 94640; 94660; 96365; 96367; 97139; C1751; J0692; J1650; J1815; J2272; J2920; J3370; J3370-JW; J3475; J3490; J7050; J7512; J7620; S0028

== ENCOUNTER 2023-01-02 11:12 | Outpatient (CLI) | payer MEDICARE | END 2023-01-02 11:13 | disposition home or self-care (01) | LOC: RAD 11:12 | PROVIDERS: ATTEND Internal Medicine Critical Care Medicine | DX: R06.00 Dyspnea, unspecified (principal); J98.4 Other disorders of lung | CPT/HCPCS: 71046 ==

== ENCOUNTER 2023-10-17 13:41 | Emergency (ER) | payer MEDICARE ==
[2023-10-17 14:35] LABS: #Basophils 0.07 10x3/uL (0.0-0.2); %Basophils 0.8 % (0.0-1.0); %Eosinophils 1.1 % (0.0-10.0); %Lymphocytes 13.1 % (21.0-51.0); %Monocytes 8.4 % (0.0-10.0); %Neutrophils 75.9 % (42.0-75.0); Hematocrit 47.1 % (42.0-52.0); Hemoglobin 15.2 g/dL (14.0-18.0); Mean Corpuscular HGB CONC 32.3 g/dL (32.0-36.0); Mean Corpuscular Hemoglobin 29.3 pg (27.0-31.0); Mean Corpuscular Volume 90.9 fL (78.0-98.0); Mean Platelet Volume 10.6 fL (7.4-10.4); Platelet Count 254 10x3/uL (130-400); RBC Distribution Width 14.4 % (11.5-14.5); Red Blood Cell (RBC) Count 5.18 mill/uL (4.70-6.10)
[2023-10-17 14:51] LABS: ALT (SGPT) 24 U/L (8-55); AST (SGOT) 29 U/L (5-34); Albumin 3.8 g/dL (3.4-4.8); Alkaline Phosphatase 92 U/L (40-110); Anion Gap 19 mmol/L (10-20); BUN (Urea Nitrogen) 19 mg/dL (8.4-25.7); Bilirubin, Total 0.4 mg/dL (0.2-1.2); Calc. Creatinine Clearance 0 mL/min (70-130); Carbon Dioxide 26 mmol/L (23-31); Chloride 98 mmol/L (98-107); Estimated GFR 64; Globulin 3.9 g/dL (2.4-3.5); Glucose 90 mg/dL (80-115); Lipase 19 U/L (8-78); Potassium 4.2 mmol/L (3.5-5.1); Protein, Total 7.7 g/dL (5.8-8.1); Sodium 139 mmol/L (136-145)
[2023-10-17] MEDS ORDERED: Iopamidol-370 76% 500 ML MDV (1 ML CHARGE) ONE (15:05)
[2023-10-17] MEDS ORDERED: methylPREDNISolone Sod Succ/PF 125 MG/2 ML VIAL ONE (15:29)
[2023-10-17] MEDS ORDERED: diphenhydrAMINE 50 MG/ML VIAL ONE (15:29)
[2023-10-17] MEDS ORDERED: Famotidine/PF 20 mg/2ml Vial ONE (15:29)
== END 2023-10-17 17:34 | disposition home or self-care (01) ==
LOC: ERS 13:41
DX: R14.0 Abdominal distension (gaseous) (principal); J44.9 Chronic obstructive pulmonary disease, unspecified; I50.9 Heart failure, unspecified; Z79.899 Other long term (current) drug therapy
CPT/HCPCS: 74177; 80053; 83605; 83690; 85025; 96374; 96375; 99284; J1200; J2930; S0028; 36415